=== PATIENT | female | born 1945 | race Caucasian/White ===

== ENCOUNTER 2016-05-02 11:07 | Observation (INO) | payer MEDICARE, MEDICAID ==
[~2016-05-02] VITALS: Ht 167.6 cm; Wt 107.0 kg
[~2016-05-02 11:07] MED LIST: ALTACE5 MG PO; ATIVAN0.5 MG PO; BACLOFEN10 MG PO; CEFTIN500 MG PO; CELEBREX 100 M100 MG PO; CELEXA10 MG PO; CHLORTHALIDONE25 MG PO; COPAXONE INJ20 MG/ML SQ; CYCLOBENZAPRINE10 MG PO; ELAVIL75 MG PO; HYDROCODONE-APA1 TAB PO; LIPITOR10 MG PO; NEURONTIN 300300 MG PO; NICODERM C1 PATCH .3 TRANSDERM; OXYBUTYNIN CHLOR5 MG PO; PREDNISONE10 MG PO; PROTONIX40 MG PO; VITAMIN B-121000 MCG PO; VITAMIN D2000 UNIT PO; ZANAFLEX4 MG PO; ZANTAC150 MG PO; ZYLOPRIM100 MG PO
[2016-05-02 11:59] LABS: BASOPHILS 0.1 % (0.0-2.0); EOSINOPHILS 4.9 % (0-7); HEMATOCRIT 27.8 % (36.0-48.0); HEMOGLOBIN 8.8 g/dL (12-16); IMMATURE GRANULOCYTES 0.9 % (0-5); LYMPHOCYTES 17.3 % (15-50); MCH 29.1 pg (26.0-34.0); MCHC 31.7 g/dL (31.0-37.0); MCV 92.1 fL (80.0-100.0); MEAN PLATELET VOLUME 9.8 fL (7.4-10.4); MONOCYTES 6.6 % (2-11); NEUTROPHILS 70.2 % (40-80); PLATELET COUNT 229 10x3/uL (130-400); RBC 3.02 10x6/uL (4.00-5.40); RDW 14.4 % (11.5-14.5); WBC 7.6 10x3/uL (4.8-10.8)
[2016-05-02 12:12] LABS: ALBUMIN 2.9 g/dL (3.4-5.0); ALKALINE PHOSPHATASE 103 U/L (46-116); ALT (SGPT) 9 U/L (10-68); BILIRUBIN - TOTAL 0.22 mg/dL (0.2-1.3); CALC OSMOLALITY 280 mosm/kg (275-300); CALCIUM 8.5 mg/dL (8.5-10.1); CARBON DIOXIDE 29.1 mmol/L (21.0-32.0); CHLORIDE - SERUM 104 mmol/L (98-107); CREATININE - SERUM 1.3 mg/dL (0.6-1.3); GLUCOSE 109 mg/dL (74-106); POTASSIUM - SERUM 4.4 mmol/L (3.5-5.1); PROTEIN - SERUM 6.6 g/dL (6.4-8.2); SODIUM 140 mmol/L (136-145); UREA NITROGEN 16 mg/dL (7-18); eGFR NON AFRICAN AMERICAN 43 mL/min (90-120)
[2016-05-02 12:23] LABS: CHOL - HDL RATIO 5.6 ratio (2.3-4.1); CHOLESTEROL, TOTAL 158 mg/dL (0-200); CKMB 0.5 U/L (0.0-3.6); CREATINE KINASE 35 UL (21-215); HDL CHOLESTEROL 28 mg/dL (32-96); LDL CHOLESTEROL 96 mg/dL (0-100); LDL-HDL RATIO 3.4 ratio (1.5-3.5); TRIGLYCERIDE 170 mg/dL (30-200); TROPONIN-I 0.018 ng/mL (0.000-0.060)
--- NOTE | 2016-05-02 17:40 | NUR ---
TRANSFER FROM ER BY W/C. AUGUSTOINTED TO ROOM. CALL LIGHT IN REACH. WILL CONT. PLAN OF CARE.
[2016-05-02 17:50] VITALS: BP 144/79; BMI 35.2
[2016-05-02] MEDS ORDERED: LOSARTAN POTASS25 MG PO (18:13)
[2016-05-02] MEDS ORDERED: GABAPENTIN100 MG PO (18:17)
--- NOTE | 2016-05-02 19:00 | NUR ---
RECEIVED REPORT AND ASSUMED PT CARE FROM DAY SHIFT NURSE @ THIS TIME.
[2016-05-02 19:39] LABS: CKMB 0.8 U/L (0.0-3.6); CREATINE KINASE 42 UL (21-215)
[2016-05-02 19:44] LABS: TROPONIN-I 0.017 ng/mL (0.000-0.060)
[2016-05-02 21:18] VITALS: BP 159/70
[2016-05-03 00:23] VITALS: BP 157/63
[2016-05-03 04:25] VITALS: BP 125/65
[2016-05-03 06:17] LABS: CKMB 0.6 U/L (0.0-3.6); CREATINE KINASE 29 UL (21-215); TROPONIN-I 0.017 ng/mL (0.000-0.060)
[2016-05-03 07:00] VITALS: BP 164/81
--- NOTE | 2016-05-03 07:39 | NUR ---
RECEIVED PT IN BED AAOX4 RESP UNLABORED NAD NOTED DENIES ANY NEEDS OR DISCOMFORT NAD NOTED
--- NOTE | 2016-05-03 08:40 | NUR ---
CALLED EMMA DAVIS TRANSFERED TO PT ROOM PT WANTED TO EXPLAIN WHAT DOCTOR SAID
[2016-05-03] MEDS ORDERED: COPAXONE INJ20 MG/ML SQ ×2 (10:27→10:40)
[2016-05-03] MEDS ORDERED: LIPITOR20 MG PO (10:28)
[2016-05-03] MEDS ORDERED: TENORMIN25 MG PO (10:30)
[2016-05-03] MEDS ORDERED: ATIVAN0.5 MG PO (10:31)
[2016-05-03] MEDS ORDERED: OXYBUTYNIN CHLOR5 MG PO (10:33)
[2016-05-03] MEDS ORDERED: ZYLOPRIM100 MG PO (10:34)
[2016-05-03] MEDS ORDERED: POTASSIUM99 M1 PO (10:35)
[2016-05-03] MEDS ORDERED: VITAMIN B-121000 MCG PO (10:36)
[2016-05-03] MEDS ORDERED: VITAMIN D31000 UNIT PO (10:37)
[2016-05-03] MEDS ORDERED: VITAMIN D31000 UNIT (10:37)
[2016-05-03 11:52] LABS: BASOPHILS 0.1 % (0.0-2.0); EOSINOPHILS 4.1 % (0-7); HEMATOCRIT 25.8 % (36.0-48.0); HEMOGLOBIN 8.4 g/dL (12-16); IMMATURE GRANULOCYTES 0.4 % (0-5); LYMPHOCYTES 16.7 % (15-50); MCH 29.8 pg (26.0-34.0); MCHC 32.6 g/dL (31.0-37.0); MCV 91.5 fL (80.0-100.0); MEAN PLATELET VOLUME 9.9 fL (7.4-10.4); MONOCYTES 5.2 % (2-11); NEUTROPHILS 73.5 % (40-80); PLATELET COUNT 233 10x3/uL (130-400); RBC 2.82 10x6/uL (4.00-5.40); RDW 14.4 % (11.5-14.5); WBC 7.4 10x3/uL (4.8-10.8)
[2016-05-03 12:00] VITALS: BP 132/66
[2016-05-03 12:18] LABS: AMYLASE - SERUM 11 U/L (25-115); LIPASE 46 U/L (73-393)
[2016-05-03 13:21] VITALS: Ht 167.6 cm; Wt 107.0 kg
[2016-05-03 16:00] VITALS: BP 167/68
--- NOTE | 2016-05-03 19:15 | NUR ---
INIITIAL ROUNDS MADE. PT SITTING UP IN BED RESTING WELL WITH EYES CLOSED. AWAKENED EASILY WHEN NAME CALLED. CALL LIGHT IN REACH. WILL CONT TO MONITOR.
[2016-05-03 20:47] VITALS: BP 121/51
--- NOTE | 2016-05-03 22:50 | NUR ---
DR BRUNSON HAS ORDERED GOLYTELY FOR PT CONSTIPATION. NOTIFIED PLAYERS ASSISTANT.
--- NOTE | 2016-05-03 23:25 | NUR ---
SR. SOCIAL MEDIA & MOBILE MANAGER AT BEDSIDE FOR VS. NEEDS ADDRESSED, CALL LIGHT IN REACH. WILL CONT TO MONITOR.
[2016-05-04 00:24] VITALS: BP 153/75
[2016-05-04 04:39] VITALS: BP 139/59
--- NOTE | 2016-05-04 05:15 | NUR ---
NO CHANGES IN ASSESSMENT. CALL LIGHT IN REACH. DENIES NEEDS. CONT TO MONITOR.
--- NOTE | 2016-05-04 05:30 | NUR ---
AUDIO DIRECTOR BROUGHT MARTA TO FLOOR. MIXED AND STARTED AT THIS TIME. PT INSTRUCTED ON USE.
--- NOTE | 2016-05-04 07:30 | NUR ---
RECEIVED PT IN BED AAOX4 C/O HENDRICKS 11/18 REQUESTING TYLENOL EXPLAINED I WOULD CALL AND GET AN ORDER FOR TYLENOL DENIES ANY OTHER NEEDS
[2016-05-04] MEDS ORDERED: ACETAMINOPHEN500 M1 PO (07:32)
--- NOTE | 2016-05-04 11:34 | NUR ---
CM MET WITH PATIENT REGARDING D/C TODAY. PATIENT WAS DRESSED AND READY FOR DISCHARGE. PATIENT REFUSED HOME HEALTH OR ANY OTHER NEEDS. PATIENT WAS WAITING ON HER RIDE HOME.
[2016-05-04 13:01] VITALS: BP 109/49
--- NOTE | 2016-05-04 13:30 | NUR ---
REVIEWED DISCHARGE [id number] WITH PT AND SON BOTH STATE UNDERSTANDING COPY GIVEN TO PT DCD LT HAND SALINE LOCK WITH 20 GA IV CATHETER INTACT PT DISCHARGED HOME LEFT UNIT IN STABLE CONDITION VIA W/C WITH ALL PERSONAL BELONGINGS
== END 2016-05-04 13:30 | disposition home or self-care (01) ==
LOC: D.ER 11:07 → D.M2 14:21 → OBSVTIME 14:21 → D.M2 05-04 13:30
PROVIDERS: Emergency Medicine; ADMIT Internal Medicine Cardiovascular Disease
DX: I25.110 Atherosclerotic heart disease of native coronary artery with unstable angina pectoris (principal); R07.89 Other chest pain; I10 Essential (primary) hypertension; E78.5 Hyperlipidemia, unspecified; J44.9 Chronic obstructive pulmonary disease, unspecified; K59.00 Constipation, unspecified

== ENCOUNTER 2016-06-04 20:45 | Inpatient (IN) | payer MEDICARE ==
[~2016-06-04] VITALS: Ht 167.6 cm; Wt 99.8 kg
[~2016-06-04 20:45] MED LIST changes: +ACETAMINOPHEN500 M1 PO; +GABAPENTIN100 MG PO; +LIPITOR20 MG PO; +LOSARTAN POTASS25 MG PO; +POTASSIUM99 M1 PO; +TENORMIN25 MG PO; +VITAMIN D31000 UNIT; +VITAMIN D31000 UNIT PO
[2016-06-04 21:24] LABS: BASOPHILS 0.1 % (0-2); EOSINOPHILS 0.1 % (0-7); HEMATOCRIT 30.3 % (36.0-48.0); HEMOGLOBIN 9.9 g/dL (12-16); LYMPHOCYTES 15.4 % (15-50); MCH 29.1 pg (26.0-34.0); MCHC 32.7 g/dL (31.0-37.0); MCV 89.1 fL (80.0-100.0); MEAN PLATELET VOLUME 10.4 fL (7.4-10.4); MONOCYTES 8.2 % (2-11); NEUTROPHILS 73.2 % (40-80); PLATELET COUNT 252 10x3/uL (130-400); RDW 14.5 % (11.5-14.5); WBC 10.5 10x3/uL (4.8-10.8)
[2016-06-04 21:43] LABS: ALBUMIN 2.9 g/dL (3.4-5.0); ANION GAP 11.3 mmol/L (8-16); BILIRUBIN - TOTAL 0.37 mg/dL (0.2-1.3); CARBON DIOXIDE 26.7 mmol/L (21.0-32.0); CREATININE - SERUM 1.6 mg/dL (0.6-1.3); PROTEIN - SERUM 6.1 g/dL (6.4-8.2)
[2016-06-04 23:25] LABS: APPEARANCE HAZY (CLEAR); BILIRUBIN NEGATIVE (NEGATIVE); COLOR YELLOW (YELLOW); GLUCOSE 100 mg/dL (NEGATIVE); KETONE NEGATIVE (NEGATIVE); LEUKOCYTE ESTERASE 1+ (NEGATIVE); NITRITE NEGATIVE (NEGATIVE); PH 5.5 (5.0-6.0); PROTEIN 1+ mg/dL (NEGATIVE); SPECIFIC GRAVITY 1.015 (1.005-1.020); UROBILINOGEN NORMAL (NORMAL)
[2016-06-04 23:32] LABS: BACTERIA MODERATE /hpf (NONE SEEN); EPITHELIAL CELLS 0-5 /hpf (0-5); RED CELLS - URINE 0-5 /hpf (0-5)
[2016-06-05 02:00] VITALS: BP 149/68; BMI 35.6
--- NOTE | 2016-06-05 02:17 | NUR ---
RECEIVED PATIENT FROM ER WITH FAMILY AT BEDSIDE. NO VISIBLE SIGNS OF DISTRESS. PATIENT IS ABLE TO ANSWER QUESTIONS. HUNG LEVOFLOXACIN 500MG IN 100ML THAT WAS BROUGHT FROM THE ER. BED IN LOWEST POSITION, CALL LIGHT WITHIN REACH, AND BED ALARM ON. ENCOURAGED THE PATIENT AND FAMILY TO CALL IF THEY HAVE FURTHER NEEDS.
--- NOTE | 2016-06-05 04:17 | NUR ---
IV TO R WRIST INFILTRATED, DC'D WITH CATH INTACT, RESITED WITH 22 G IN R FOREARM X 2 ATTEMPTS, IV FLUIDS RESTARTED, ALEENA WELL, SR'S UP, CL IN REACH
--- NOTE | 2016-06-05 07:30 | NUR ---
UPON ENTERING PATIENT'S ROOM, RESTING QUIETLY WITH EYES CLOSED. PATIENT AROUSED EASILY. ASKED PATIENT QUESTIONS TO ASSESS LEVEL OF ORIENTATION. PATIENT STATED NAME AND CORRECTLY. SHE ANSWERED CORRECTLY REGARDING PLACE AND SITUATION. ASKED PATIENT THE YEAR, PATIENT STATED "OH..I JUST WOKE UP. LET ME THINK ABOUT IT...." ASKED PATIENT WHO IS THE PRESIDENT. PATIENT SAID "OH..I KNOW... ITS WHAT'S HIS NAME?" REORIENTED PATIENT TO TIME AND DATE. ASSESSMENT COMPLETED AT THIS TIME.
[2016-06-05 08:21] VITALS: BP 173/70
--- NOTE | 2016-06-05 10:30 | NUR ---
TIERA VANN STATED "THE PATIENT SAID SHE HAS BEEN WET SINCE 8PM LAST NIGHT." SOO CHANGED THE LINENS AND CLEANED PATIENT UP. I WENT IN ROOM. I STATED "HAWA GONZALEZY TOLD ME THAT YOU SAID YOU HAVE BEEN WET SINCE 8PM LAST NIGHT. I JUST WANTED TO LET YOU KNOW THAT IS NOT ACCURATE. YOU DID NOT GET UP HERE TO YOUR ROOM UNTIL AROUND 2AM THIS MORNING. AND REMEMBER YOUR NURSE AND ELECTRICAL SYSTEMS DESIGN ENGINEER LAST NIGHT GAVE YOU A BATH AND PUT LOTION ON YOU?" PATIENT STATED "OH YEAH. THAT WAS AROUND 4AM." I SAID "AND REMEMBER I CAME IN THIS MORNING AND DID YOUR ASSESSMENT AND GAVE YOU INSULIN AND WE TALKED ABOUT WHO THE PRESIDENT IS. AND YOU WERE NOT WET THEN." PATIENT STATED "YEAH. I WAS CONFUSED. I REMEMBER NOW."
--- NOTE | 2016-06-05 11:16 | NUR ---
ASSISTED PATIENT TO THE CHAIR. VIGNESH CHAIR ALARM ON.
[2016-06-05 11:35] VITALS: BP 180/72
[2016-06-05 14:02] VITALS: Ht 167.6 cm; Wt 99.8 kg
--- NOTE | 2016-06-05 14:11 | NUR ---
Patient Name: KENDRA GEE Admission Status: ER Accout number: [id number] Admission Date: 06-05-2016 : 1945 Admission Diagnosis: Attending: RIOS Current LOS: 1 Anticipated DC Date: 06-09-2016 Planned Disposition: Home Primary Insurance: MEDICARE A & B Discharge Planning Comments: CM MET WITH PATIENT REGARDING D/C NEEDS AND PLANS. PATIENT STATED SHE LIVES WITH HER SON (SUSAN TREVIÑO) AND HE WILL DRIVE HER HOME AT DISCHARGE. PATIENT IS INDEPENDENT WITH HER CARE AND HAS A WALKER, WHEELCHAIR, SHOWER CHAIR, AND BS COMMODE AT HOME. PATIENTS SON HELPS HER WITH HER MEDICATION. PATIENT HAS NO STEPS OR STAIRS AT HER HOME. PATIENTS PCP IS DR. HARRIS AND PHARMACY IS [facility] [address]. CM WILL CONTINUE TO FOLLOW PATIENT WITH D/C NEEDS AND PLANS. PATIENT HAD BEEN WITH [facility] RECENTLY BUT DOES NOT THINK SHE WILL NEED THEM AT DISCHARGE. CM WILL CONTINUE TO FOLLOW PATIENT WITH D/C NEEDS AND PLANS. PCP DR. STEVEN ROACH ON [facility]- [phone] SUSAN TREVIÑO (SON) [phone] Water Supply Technician: Naheed Rodriguez Is the patient Alert and Oriented? Yes 0 * How many steps to enter\exit or inside your home? 0 0 * PCP DR. HARRIS 0 * Pharmacy [facility] [address] [employer] 0 * Preadmission Environment Home with Family 0 * ADLs Independent 0 * Equipment Bedside Commode Shower Chair Walker Wheelchair 0 * List name and contact numbers for known caregivers / representatives who currently or will assist patient after discharge: SUSAN TREVIÑO (SON) [phone] * Community resources currently utilized None 0 * Additional services required to return to the preadmission environment? Yes 0 * Can the patient safely return to the preadmission environment? Yes 0 * Has this patient been hospitalized within the prior 30 days at any hospital? No 0 Grand Total: 0
--- NOTE | 2016-06-05 15:41 | NUR ---
CALLED [employer] FOR SCD MACHINE
--- NOTE | 2016-06-05 15:42 | NUR ---
PATIENT RESTING QUIETLY WITH EYES CLOSED. NO SIGNS OF DISTRESS NOTED.
--- NOTE | 2016-06-05 16:43 | NUR ---
APPLIED SCDS TO BILATERAL LEGS
--- NOTE | 2016-06-05 17:00 | NUR ---
PATIENT'S SON AT THE BEDSIDE. GAVE ME 5 SYRINGES OF 20MG/ML COPAXONE. GAVE THEM TO BOBO PHARMACIST.
[2016-06-05] MEDS ORDERED: COPAXONE INJ20 MG/ML SQ (17:12)
[2016-06-05 17:49] LABS: % SATURATION 14 % (15-55); IRON 38 ug/dl (35-150); TOTAL IRON BIND CAPACITY 258 ug/dl (260-445); UNSAT IRON BIND CAPACITY 220 ug/dl (150-375)
[2016-06-05 20:00] VITALS: BP 133/46
--- NOTE | 2016-06-05 23:48 | NUR ---
1930)REC'D. IN BED EYES CLOSED RESP. DEEP AND EVEN.WILL CONTINUE TO MONITOR FOR ANY CHGES. AND FOLLOW CURRENT PLAN OF CARE.
[2016-06-06] VITALS: BP 178/81
--- NOTE | 2016-06-06 02:50 | NUR ---
PT IS ASLEEP WITH EASY RESPIRATIONS ON ROOM AIR. THE LIGHTS ARE OFF AND THE BED IS LOW, RAILS UP X'S 2 WITH THE CALL LIGHT AT HAND.
[2016-06-06 04:00] VITALS: BP 175/76
[2016-06-06 06:49] LABS: BASOPHILS 0.1 % (0-2); EOSINOPHILS 3.9 % (0-7); HEMATOCRIT 29.9 % (36.0-48.0); HEMOGLOBIN 9.7 g/dL (12-16); IMMATURE GRANULOCYTES 3.4 % (0-5); LYMPHOCYTES 25.9 % (15-50); MCH 29.5 pg (26.0-34.0); MCHC 32.4 g/dL (31.0-37.0); MCV 90.9 fL (80.0-100.0); MEAN PLATELET VOLUME 9.9 fL (7.4-10.4); NEUTROPHILS 55.7 % (40-80); RBC 3.29 10x6/uL (4.00-5.40); RDW 14.8 % (11.5-14.5); WBC 8.2 10x3/uL (4.8-10.8)
[2016-06-06 06:53] LABS: PLATELET COUNT 192 10x3/uL (130-400)
[2016-06-06 07:25] LABS: ANION GAP 6.1 mmol/L (8-16); CALCIUM 8.9 mg/dL (8.5-10.1); CARBON DIOXIDE 29.2 mmol/L (21.0-32.0); CREATININE - SERUM 1.2 mg/dL (0.6-1.3); POTASSIUM - SERUM 4.3 mmol/L (3.5-5.1)
--- NOTE | 2016-06-06 07:35 | NUR ---
Verbalized name and , Cuddy left arm. Iv patent to right forearm. Incontinent of urine cleansed up, no skin breakdown assessed. Repositioned in bed. No distress assessed.
--- NOTE | 2016-06-06 08:21 | HP ---
PATIENT: KENDRA GEE MEDICAL RECORD: [id number] ACCOUNT: [id number] LOCATION:[facility] : 43 ADMISSION DATE: 06/05/16 HISTORY AND PHYSICAL EXAMINATION Admission History and Physical DATE OF ADMISSION: ____ CHIEF COMPLAINT: Generalized weakness. HISTORY OF PRESENT ILLNESS: A 70-year-old female who just started seeing a few months ago, presented to the ER yesterday evening with generalized weakness with gradual onset over the last couple of days, she has difficulty standing and walking. She had a little bit of weakness to the left side more than the right. She has a history of hypertension and reportedly had a stroke in October 2015. She denied fever, chills. No significant nausea or vomiting. In the Emergency Room, she was a little confused. CT of the head did not show any abnormalities. Lab work basically showed elevated sugar. Urine was hazy with 1+ leukocyte esterase, 0-5 epithelial cells and moderate amount of bacteria. White count was normal and she was a little anemic with a hemoglobin of 9.9, BUN and creatinine were 43 and 1.6. She is admitted for altered mental status with generalized weakness, UTI and anemia. PAST MEDICAL HISTORY: She has multiple sclerosis, followed by Dr. Ulloa She has a history of anxiety and depression, high cholesterol, high blood pressure, overactive bladder and reportedly a stroke in 2015, though CT of the head does not show any abnormalities even any old abnormalities. PAST SURGICAL HISTORY: Cholecystectomy, splenectomy, and knee replacement. ALLERGIES: CODEINE. HOME MEDICATIONS: Include Copaxone one injection daily, amitriptyline 75 mg daily, Tylenol as needed, vitamin D 1000 units once a day, B12 of 1000 mcg tablet once a day, lorazepam half a tablet up to 3 times a day as needed for anxiety, gabapentin 100 mg 3 at bedtime, losartan 25 mg once a day, potassium 99 mg once a day, ranitidine 150 mg twice a day, oxybutynin 5 mg 3 times a day, citalopram 10 mg once a day, Celebrex 100 mg twice a day, atenolol 25 mg one half tablet once a day, allopurinol 100 mg once a day, atorvastatin 20 mg at bedtime. HABITS: My records show she is a current every day smoker. Denies any alcohol or drug use. SOCIAL HISTORY: She is and lives with son. FAMILY HISTORY: Father at 74, he had dementia, heart disease, hypertension, and had a stroke. Mother and she had had arthritis and breast cancer. REVIEW OF SYSTEMS: GENERAL: No major weight changes. HEENT: No particular sinus or allergy problems. RESPIRATORY: No history of emphysema or asthma. HISTORY AND PHYSICAL [id number] KENDRA GEE CARDIAC: She was just admitted here at [facility] last month with chest pain to the cardiology group. She had a CT of the chest that was negative for PE. There were some coronary calcifications on the CT, cardiac enzymes were negative and I do not believe any further workup was done, but there is no known coronary artery disease in her. GASTROINTESTINAL: She has had some reflux. GENITOURINARY: She has overactive bladder. MUSCULOSKELETAL: Few joint aches and pains. NEUROLOGIC: She has multiple sclerosis. No seizures. No migraines. She reportedly has this history of stroke back in July 2015, but there are no obvious deficits on her exam. PHYSICAL EXAMINATION: VITAL SIGNS: Temperature 97.5, pulse 60, respirations 18, blood pressure 180/72, and O2 sat 96%. GENERAL: She does not appear in acute distress at this time. HEENT: Grossly within normal limits. NECK: Supple. No JVD or bruit. HEART: Regular rate and rhythm without murmur. LUNGS: Clear. ABDOMEN: Soft, but generalized tenderness especially in the lower abdomen. No guarding, no rebound, no mass. EXTREMITIES: No edema. BACK: With no significant pain there. NEUROLOGIC: At this point, cranial nerves II-XII are grossly intact. No focal motor or sensory deficits noted. DIAGNOSTIC DATA: CT of her head was done last night in the ER showing no mass effect or midline shift, no high or low density lesions seen. No lytic or blastic lesions. Sinuses look clear. There was no acute intracranial pathology and there was no mention of any old areas of infarct. LABORATORY WORKUP: CBC with a white count of 10,500, hemoglobin 9.9, hematocrit 30.3 with a normal MCV and platelet count. Chemistry: BUN a little low at 2.9, protein 6.1; however, liver functions are okay. Her glucose initially in the ER was 280. BUN and creatinine were 43 and 1.6. Electrolytes were normal. Urinalysis is yellow, hazy, 1+ protein, 1+ leukocyte esterase, 10-25 white blood cells, moderate amount of bacteria, 0-5 epithelial cells. Urine culture has been done. ASSESSMENT: 1. Urinary tract infection. 2. Encephalopathy, most likely due to urinary tract infection. 3. Anemia, uncertain etiology. 4. Weakness. PLAN: IV fluids. The urine culture has already been done. SCDs are ordered. She started on Levaquin and we will continue her usual home medications. We will do further workup for her anemia. Other tests and procedures as warranted. TRANSINT:[id number] Voice Confirmation ID: [id number] DOCUMENT ID: [id number] HISTORY AND PHYSICAL [id number] KENDRA GEE WILLIAM MD at 0821 CC: [id number] DICTATION DATE: 06/05/16 1612 GENERAL SERVICE TECHNICIAN: 06/05/16 2251 ADM IN [facility] [address] [id number]
[2016-06-06 10:09] VITALS: BP 143/58
[2016-06-06 11:47] VITALS: BP 115/38
[2016-06-06 16:38] VITALS: BP 115/48
[2016-06-06 19:00] VITALS: BP 146/57
--- NOTE | 2016-06-06 19:30 | NUR ---
PT RECEIVED SITTING UP IN BED WATCHING TELEVISION. ASSESSMENT COMPLETED PER FLOW SHEET. PT DENIES NEEDS AT THIS TIME. CALL LIGHT AND H2O IN PT REACH. BED IN LOW POSITION. SIDE REAILS UP X2.
--- NOTE | 2016-06-06 20:00 | NUR ---
PT REQUESTS SCD'S TO BE REMOVED. EDUCATE PT ON SCD'S FOR DVT PREVENTION. PT VERBALIZED UNDERSTANDING AND STATES, "I CAN'T SLEEP WITH THEM ON, THEY ARE UNCOMFORTABLE." SCD'S REMOVED PER PT'S REQUEST.
[2016-06-07] VITALS: BP 168/57
--- NOTE | 2016-06-07 03:47 | NUR ---
LYING IN BED WITH EYES CLOSED. RESP EVEN AND UNLABORED. CALL LIGHT IN REACH.
[2016-06-07 04:00] VITALS: BP 169/69
--- NOTE | 2016-06-07 07:30 | NUR ---
LYING IN BED WATCHING TV, DENIES NEEDS, HOPFUL FOR DISCHARGE, CALL LIGHT IN REACH, BED LOWEST POSITION, GETTTING UP FOR SHOWER, WILL CONTINUE TO MONITOR
[2016-06-07 08:16] LABS: FOLATE (FOLIC ACID) - SERUM 3.4 ng/mL (>3.0)
[2016-06-07 09:00] VITALS: BP 143/90
--- NOTE | 2016-06-07 11:26 | NUR ---
CM faxed discharge information to [facility] and also spoke to [facility] service to notify nurse of patient's dishcarge today. Dorita Gomes RN, [facility] [phone]
--- NOTE | 2016-06-07 13:30 | NUR ---
SITTING UP IN CHAIR AT BEDSIDE ALERT. NO SIGNS OF DISTRESS NOTED. CALL LIGHT IN REACH.
--- NOTE | 2016-06-07 14:04 | NUR ---
DISCHARGE PAPERS AND INSTRUCTIONS GIVEN TO PT AND SON, QUESTIONS ANSWERED, IV REMOVED TIP INTACT, DISCHARGED PER WC WITH BELONGINGS
== END 2016-06-07 14:24 | disposition home health service (06) | DRG 689 ==
LOC: D.ER 20:45 → D.MS 06-05 00:29
PROVIDERS: Emergency Medicine; ADMIT Family Medicine
DX: N39.0 Urinary tract infection, site not specified (principal); G93.40 Encephalopathy, unspecified; R53.1 Weakness; E78.00 Pure hypercholesterolemia, unspecified; F41.8 Other specified anxiety disorders; G35 Multiple sclerosis; E86.0 Dehydration; I12.9 Hypertensive chronic kidney disease with stage 1 through stage 4 chronic kidney disease, or unspecified chronic kidney disease; N18.9 Chronic kidney disease, unspecified; D63.1 Anemia in chronic kidney disease; J44.9 Chronic obstructive pulmonary disease, unspecified; R32 Unspecified urinary incontinence; Z86.73 Personal history of transient ischemic attack (TIA), and cerebral infarction without residual deficits

== ENCOUNTER 2016-07-08 15:28 | Emergency (ER) | payer MEDICARE ==
[2016-06-05 14:02] VITALS: BMI 35.5
[2016-07-08 17:02] LABS: BASOPHILS 0.3 % (0-2); HEMATOCRIT 30.9 % (36.0-48.0); HEMOGLOBIN 9.8 g/dL (12-16); IMMATURE GRANULOCYTES 1.6 % (0-5); LYMPHOCYTES 20.1 % (15-50); MCH 29.5 pg (26.0-34.0); MCHC 31.7 g/dL (31.0-37.0); MCV 93.1 fL (80.0-100.0); MEAN PLATELET VOLUME 10.6 fL (7.4-10.4); MONOCYTES 9.2 % (2-11); NEUTROPHILS 65.8 % (40-80); PLATELET COUNT 226 10x3/uL (130-400); RBC 3.32 10x6/uL (4.00-5.40); RDW 15.5 % (11.5-14.5); WBC 6.7 10x3/uL (4.8-10.8)
[2016-07-08 17:43] LABS: INR 0.99 (0.85-1.17)
[2016-07-08 17:44] LABS: APTT 45.7 SECONDS (22.8-39.4)
[2016-07-08 17:51] LABS: ALBUMIN 3.3 g/dL (3.4-5.0); ANION GAP 12.2 mmol/L (8-16); BILIRUBIN - TOTAL 0.33 mg/dL (0.2-1.3); CALCIUM 9.2 mg/dL (8.5-10.1); CARBON DIOXIDE 28.4 mmol/L (21.0-32.0); CREATININE - SERUM 1.4 mg/dL (0.6-1.3); POTASSIUM - SERUM 4.6 mmol/L (3.5-5.1); PROTEIN - SERUM 6.8 g/dL (6.4-8.2)
[2016-07-08 18:31] LABS: APPEARANCE CLEAR (CLEAR); BILIRUBIN NEGATIVE (NEGATIVE); COLOR YELLOW (YELLOW); GLUCOSE NEGATIVE (NEGATIVE); KETONE NEGATIVE (NEGATIVE); LEUKOCYTE ESTERASE NEGATIVE (NEGATIVE); NITRITE NEGATIVE (NEGATIVE); PROTEIN NEGATIVE (NEGATIVE); UROBILINOGEN NORMAL (NORMAL)
== END 2016-07-08 19:39 | disposition home or self-care (01) ==
LOC: D.ER 15:28
PROVIDERS: Emergency Medicine
DX: J20.9 Acute bronchitis, unspecified (principal); J44.9 Chronic obstructive pulmonary disease, unspecified; I12.9 Hypertensive chronic kidney disease with stage 1 through stage 4 chronic kidney disease, or unspecified chronic kidney disease; N18.9 Chronic kidney disease, unspecified

== ENCOUNTER 2016-09-29 06:11 | Inpatient (IN) | payer MEDICARE ==
[~2016-09-29] VITALS: Ht 167.6 cm; Wt 104.5 kg
[2016-09-29] VITALS (11 sets, daily range): BP systolic 99–127; BP diastolic 49–82; BMI 36.4
[2016-09-29 07:10] LABS: BASOPHILS 0.2 % (0-2); EOSINOPHILS 6.6 % (0-7); HEMATOCRIT 27.7 % (36.0-48.0); HEMOGLOBIN 8.8 g/dL (12-16); IMMATURE GRANULOCYTES 0.3 % (0-5); LYMPHOCYTES 18.6 % (15-50); MCH 28.9 pg (26.0-34.0); MCHC 31.8 g/dL (31.0-37.0); MCV 91.1 fL (80.0-100.0); NEUTROPHILS 67.3 % (40-80); PLATELET COUNT 226 10x3/uL (130-400); RBC 3.04 10x6/uL (4.00-5.40); RDW 15.1 % (11.5-14.5); WBC 6.2 10x3/uL (4.8-10.8)
[2016-09-29] MEDS ORDERED: CELEBREX 100 M100 MG PO (07:10)
[2016-09-29] MEDS ORDERED: GLUCOPHAGE500 MG PO (07:10)
[2016-09-29] MEDS ORDERED: ELAVIL25 MG PO (07:11)
[2016-09-29 07:25] LABS: ANION GAP 10.7 mmol/L (8-16); CALCIUM 8.5 mg/dL (8.5-10.1); CARBON DIOXIDE 28.4 mmol/L (21.0-32.0); CREATININE - SERUM 1.6 mg/dL (0.6-1.3); POTASSIUM - SERUM 4.1 mmol/L (3.5-5.1)
[2016-09-29 07:26] LABS: INR 1.08 (0.85-1.17); PROTIME 13.9 SECONDS (11.6-15.0)
[2016-09-29 07:27] LABS: APTT 51.2 SECONDS (22.8-39.4)
[2016-09-29 09:41] LABS: CKMB 0.3 U/L (0.0-3.6); CREATINE KINASE 37 UL (21-215); TROPONIN-I < 0.017 ng/mL (0.000-0.060)
[2016-09-29 09:45] LABS: BASOPHILS 0.1 % (0-2); EOSINOPHILS 4.6 % (0-7); HEMATOCRIT 31.1 % (36.0-48.0); HEMOGLOBIN 9.7 g/dL (12-16); IMMATURE GRANULOCYTES 1.2 % (0-5); LYMPHOCYTES 29.1 % (15-50); MCH 28.9 pg (26.0-34.0); MCHC 31.2 g/dL (31.0-37.0); MCV 92.6 fL (80.0-100.0); MEAN PLATELET VOLUME 10.6 fL (7.4-10.4); MONOCYTES 5.8 % (2-11); NEUTROPHILS 59.2 % (40-80); RBC 3.36 10x6/uL (4.00-5.40); RDW 15.3 % (11.5-14.5)
[2016-09-29 09:49] LABS: PLATELET COUNT 280 10x3/uL (130-400); WBC 10.3 10x3/uL (4.8-10.8)
[2016-09-29 09:56] LABS: APTT 47.6 SECONDS (22.8-39.4); INR 1.12 (0.85-1.17); PROTIME 14.3 SECONDS (11.6-15.0)
[2016-09-29 14:01] LABS: CREATINE KINASE 48 UL (21-215)
[2016-09-29 14:07] LABS: TROPONIN-I 0.187 ng/mL (0.000-0.060)
--- NOTE | 2016-09-29 14:10 | NUR ---
PT ARRIVED ON UNIT FROM ER VIA STRETCHER. PT IN CONTROLLED AFIB AT THIS TIME. CARDIOLOGY AND PULMONOLOGY CONSULTED AND NOTIFIED. ADMISSION ASSESSMENT, HISTORY, QUICK START COMPLETED. PT ALERT AND ABLE TO ANSWER ALL QUESTIONS APPROPRIATELY. APPEARS SLIGHTLY DISORIENTED TO SITUATION BUT ABLE TO REORIENT. PT SET UP ON MONITOR. WILL MONITOR CLOSELY.
--- NOTE | 2016-09-29 16:00 | NUR ---
PT RESTING AT THIS TIME WITH NO COMPLAINTS. REMAINS IN CONTROLLED AFIB AND VITAL SIGNS ARE STABLE. DENIES PAIN OR DISCOMFORT. WILL CONTINUE TO MONITOR
--- NOTE | 2016-09-29 17:30 | NUR ---
PT SITTING UP IN BED EATING DINNER INDEPENDENTLY. FAMILY AT BEDSIDE AND UPDATE GIVEN. PT STABLE AT THIS TIME. WILL CONTINUE TO MONITOR
--- NOTE | 2016-09-29 20:30 | NUR ---
AWAKE AND ALERT. VERY COOPERATIVE. DENIES NEEDS
[2016-09-29 20:36] LABS: CREATINE KINASE 47 UL (21-215)
[2016-09-29 20:46] LABS: TROPONIN-I 0.148 ng/mL (0.000-0.060)
--- NOTE | 2016-09-29 23:10 | NUR ---
NO CHANGES. STATES THAT HER CHEST IS SORE.
[2016-09-30] VITALS (21 sets, daily range): BP systolic 96–156; BP diastolic 57–107; Ht 167.6 cm; Wt 104.5 kg
--- NOTE | 2016-09-30 03:30 | NUR ---
AWAKENS EASILY. DENIES NEEDS. VSS.
[2016-09-30 04:12] LABS: BASOPHILS 0.3 % (0-2); EOSINOPHILS 3.8 % (0-7); HEMATOCRIT 26.9 % (36.0-48.0); HEMOGLOBIN 8.6 g/dL (12-16); IMMATURE GRANULOCYTES 0.4 % (0-5); LYMPHOCYTES 17.2 % (15-50); MCH 29.2 pg (26.0-34.0); MCV 91.2 fL (80.0-100.0); MEAN PLATELET VOLUME 10.7 fL (7.4-10.4); MONOCYTES 6.5 % (2-11); NEUTROPHILS 71.8 % (40-80); PLATELET COUNT 225 10x3/uL (130-400); RBC 2.95 10x6/uL (4.00-5.40); RDW 15.2 % (11.5-14.5)
[2016-09-30 04:24] LABS: ALBUMIN 2.4 g/dL (3.4-5.0); ANION GAP 11.3 mmol/L (8-16); BILIRUBIN - TOTAL 0.23 mg/dL (0.2-1.3); CARBON DIOXIDE 26.6 mmol/L (21.0-32.0); CREATININE - SERUM 1.4 mg/dL (0.6-1.3); POTASSIUM - SERUM 4.9 mmol/L (3.5-5.1); PROTEIN - SERUM 5.7 g/dL (6.4-8.2)
[2016-09-30 04:26] LABS: WBC 7.4 10x3/uL (4.8-10.8)
--- NOTE | 2016-09-30 06:45 | NUR ---
PIV RESITED TO R UPPER ARM.
--- NOTE | 2016-09-30 07:00 | NUR ---
PT AWAKE AND ALERT, APPEARS TO BE SLIGHTLY DISORIENTED TO PLACE AND SITUATION AT THIS TIME. PT STATES THAT SHE IS STILL UNCLEAR HOW SHE GOT TO THE ICU. EXPLAINED SITUATION AND THAT SHE IS AT [facility], PT VERBALIZED UNDERSTANDING. ABLE TO ANSWER ALL QUESTIONS AND RESPONDS APPROPRIATELY. COMPLAINS OF SLIGHT DISCOMFORT IN CHEST AT THIS TIME, SHE SAYS IT IS SORE AFTER YESTERDAY. PT IN CONTOLLED AFIB ON MONITOR AT THIS TIME. ABLE TO MOVE SELF IN BED WITH PARTIAL ASSISTANCE. HAS NO COMPLAINTS AT THIS TIME. WILL CONTINUE TO MONITOR CLOSELY. VITAL SIGNS STABLE
--- NOTE | 2016-09-30 07:56 | NUR ---
PT MOVED UP IN BED WITH MODERATE ASSISTANCE. SITTING UP EATING BREAKFAST INDEPENDENTLY WITH NO COMPLAINTS. VITAL SIGNS STABLE.
--- NOTE | 2016-09-30 09:30 | NUR ---
DR MENDEZ DISCUSSED OPTIONNS FOR NEW ONSET AFIB WITH PT AND SHE HAS AGREED TO CARDIOVERSION. WAITING FOR ORDERS PRIOR TO OBTAINING CONSENTS. WILL KEEP PT NPO UNTIL AFTER PROCEDURE. BREATHING TREATMENTS DC'D PER DR MENDEZ ORDER DUE TO IRREGULAR RHYTHM. WILL CONTINUE TO MONITOR FOR CHANGES IN STATUS.
--- NOTE | 2016-09-30 09:44 | NUR ---
* Is the patient Alert and Oriented? Yes 0 * How many steps to enter\exit or inside your home? 0 0 * PCP Dr. Marquez 0 * [facility]acy [facility] [address] 0 * Preadmission Environment Home with Family 0 * ADLs Independent 0 * Equipment Bedside Commode Cane Glucometer Nebulizer Oxygen Rolling Walker Shower Chair 0 * List name and contact numbers for known caregivers / representatives who currently or will assist patient after discharge: Alden Kaur [phone] 0 * Additional services required to return to the preadmission environment? No 0 * Can the patient safely return to the preadmission environment? Yes 0 * Has this patient been hospitalized within the prior 30 days at any hospital? No Patient Name: KENDRA GEE Admission Status: Elective Accout number: [id number] Admission Date: 09-29-2016 : 1945 Admission Diagnosis:RESPIRATORY ARREST Attending: HUONG Current LOS: 1 Planned Disposition: Home with Home Health Primary Insurance: MEDICARE A & B Discharge Planning Comments: CM met with patient to assess dc plans/needs. Patient states she lives with her son, William. She reports she is independent with all ADL's, but does use a walker or cane at times. She is currently on service with [employer] & wants to resume their services at discharge. CM will follow and assist as needed. Toy Stuffer: Keena Ng
--- NOTE | 2016-09-30 11:00 | NUR ---
SPOKE WITH DR ATKINS AND 2 UNITS OF PRBC TO BE TRANSFUSED TODAY. WILL OBTAIN TYPE AND SCREEN PER ORDER PRIOR TO TRANSFUSION. VITAL SIGNS STABLE. DR WIGGINS STATES THAT WE WILL SCHEDULE CARDIOVERSION FOR 10/01/16 AND START ON AMIODARONE DRIP PER PROTOCOL TODAY
--- NOTE | 2016-09-30 13:00 | NUR ---
TYPE AND SCREEN BEING DRAWN FOR PRBCS. PT SITTING UP IN BED WITH NO COMPLAINTS AT THIS TIME. VITAL SIGNS STABLE
--- NOTE | 2016-09-30 15:00 | NUR ---
FIRST UNIT OF PRBC INITIATED. MONITORING CLOSELY FOR TRANSFUSION REACTION. BLOOD CHECKED WITH LAB AND WITH SECOND RN PRIOR TO ADMINISTRATION. VITAL SIGNS DOCUMENTED ON BLOOD FLOWSHEET PER PROTOCOL. VITAL SIGNS STABLE
--- NOTE | 2016-09-30 15:47 | EC ---
PATIENT:KENDRA GEE DATE OF SERVICE: 09/29/16 SEX: F MEDICAL RECORD: [id number] DATE OF : [birth year] LOCATION[facility] AGE OF PATIENT: 71 ADMISSION DATE: 09/29/16 REFERRING PHYSICIAN: INTERPRETING PHYSICIAN: MARCOS WIGGINS MD ECHOCARDIOGRAM REPORT ECHO CHARGES 4 ECHO COMPLETE CLINICAL DIAGNOSIS: S/P CODE ECHOCARDIOGRAPHIC MEASUREMENTS (adult normal given) AC root (d.<3.7cm) 3.1 cm LV Septum d (<1.2 cm> 1.5 cm Valve Excursion 1.7 cm LV Septum (systole) 2.0 cm Left Atria (s.<4.0cm> 4.8 cm LVPW d(<1.2cm) 1.4 cm RV (d.<2.3cm) 2.5 cm LVPW (sytole) 1.8 cm LV diastole(<5.6CM) 4.5 cm MV E-F(>70mm/sec) cm LV systole 3.2 cm LVOT Diameter 1.9 cm MV exc.(>10mm) cm Est.ejection fraction (50-75%) % Pericardial Effusion N DOPPLER: LVIT cm/sec A 66.0 cm/sec E 88.0 cm/sec LA cm/sec RVSP 18.0 mmHg LVOT 76.0 cm/sec AOP1/2T m/s Asc. Ao 127 cm/sec RVOT 75.0 cm/sec RA cm/sec PA 100 cm/sec AV Gradient Peak 6.4 mmHg AV Mean 3.5 mmHg AV Area 1.7 cm MV Gradient Peak 7.6 mmHg MV Mean 2.9 mmHg MV Area cm COMMENTS: Sheet Tester: Joaquin HARRISONOE Lodging Facilities Manager: 4 Dr. Wiggins TAPE# PACS DATE OF SERVICE: 09/29/2016 Echocardiographic Report A very difficult imaging overall. FINDINGS: 1. Left ventricle grossly normal LV function, inflow characteristics are difficult because the patient is in atrial fibrillation. There does appear to be left ventricular hypertrophy. ECHOCARDIOGRAM REPORT [id number] KENDRA GEE 2. The left atrium appears to be moderately dilated. 3. The mitral valve has mild mitral regurgitation. 4. The right atrium is difficult to visualize, appears to be grossly normal. 5. The tricuspid valve is not well visualized, it is grossly normal. The RVSP is normal. 6. The pulmonic valve has mild pulmonic insufficiency. 7. The aortic valve appears to be grossly normal. 8. The pericardium appears to be a mild pericardial effusion without any evidence of tamponade physiology. CONCLUSIONS: The patient has what appears to be hypertensive heart disease with preserved of systolic function, mildly dilatation of the left atrial complex with no gross valvular abnormalities with mild pericardial effusion, which may be a result of the patient's CPR earlier. There does not appear to be any tamponade physiology. TRANSINT:[id number] Voice Confirmation ID: [id number] DOCUMENT ID: [id number] MARCOS WIGGINS MD at 1547 CC: [id number] DICTATION DATE: 09/29/16 174 TELEGRAPH PRINTER MECHANIC: 09/29/16 1826 [facility] IN [facility] [address] [place] [address]
--- NOTE | 2016-09-30 16:58 | NUR ---
PT SITTING UP EATING DINNER. STATES SHE ISNT HAPPY WITH MEAL SHE RECEIVED AND SON REQUESTS WE GET SOMETHING ELSE TO EAT. CALLED KITCHEN AND ORDERED SOUP PER REQUEST. NO FURTHER NEEDS AT THIS TIME. WILL CONITNUE TO MONITOR
--- NOTE | 2016-09-30 19:30 | NUR ---
REC'D TO CARE, PT ALERT AND ORIENTED. VSS. PRBC UNIT #2 INFUSING TO R UPPER ARM PIV, NO REDNESS OR SWELLING AT SITE, NO SIGN OF ADVERSE RXN. R FA PIV PATENT - SEE FLOWSHEET, NO REDNESS OR SWELLING AT SITE. LUNGS WITH FAINT CRACKLES B/L - ENCOURAGD DB&C - PT REPORTS "HURTS TO TAKE A DEEP BREATH" PT WITH RECENT HX OF CPR - WILL PAGE RE PAIN MED. WALLACE CATH PATENT AND DRAINING CLEAR, YELLOW URINE. PPP X 4. RESERVE L ARM. ALARMS ON AND C/L IN REACH.
--- NOTE | 2016-09-30 19:38 | NUR ---
Benedict SALDANA APN PAGED RE: PT C/O PAIN.
--- NOTE | 2016-09-30 19:56 | NUR ---
ADMIN PO NORCO PER PRN ORDER FOR C/O TENDERNESS "WHERE THEY DID CPR" DENIES ANY OTHER NEEDS. ALARMS ON AND C/L IN REACH.
--- NOTE | 2016-09-30 20:30 | NUR ---
PRBC COMPLETE, NO SIGN OF ADVERSE RXN. IV SL'D
--- NOTE | 2016-09-30 20:47 | NUR ---
PARTIAL BATH, BACK CARE AND WALLACE-CARE DONE. PAD CHANGED. PT REPORTS ADEQUATE PAIN RELIEF AT THIS TIME..
--- NOTE | 2016-09-30 23:10 | NUR ---
REASSESSMENT PER FLOWSHEET, NO ACUTE CHANGES. PT RESTING QUIETLY, WATCHING TV. VSS, DENIES NEEDS.
[2016-10-01] VITALS (23 sets, daily range): BP systolic 110–171; BP diastolic 69–106
--- NOTE | 2016-10-01 01:15 | NUR ---
RESTING WITH EYES CLOSED, NO SIGN OF DISTRESS. CM - CAF. ALARMS ON AND C/L IN REACH.
--- NOTE | 2016-10-01 03:29 | NUR ---
REASSESSMENT PER FLOWSHEET, NO ACUTE CHANGES. PT REPORTS ADEQUATE PAIN RELIEF AT THIS TIME, POSITIONED FOR COMFORT. NO OTHER CHANGES. C/L IN REACH.
[2016-10-01 04:23] LABS: BASOPHILS 0.2 % (0-2); EOSINOPHILS 5.6 % (0-7); HEMOGLOBIN 9.9 g/dL (12-16); IMMATURE GRANULOCYTES 0.5 % (0-5); LYMPHOCYTES 23.7 % (15-50); MCH 28.9 pg (26.0-34.0); MCHC 31.9 g/dL (31.0-37.0); MCV 90.6 fL (80.0-100.0); MEAN PLATELET VOLUME 10.9 fL (7.4-10.4); PLATELET COUNT 205 10x3/uL (130-400); RBC 3.42 10x6/uL (4.00-5.40); RDW 15.4 % (11.5-14.5)
[2016-10-01 04:32] LABS: WBC 5.5 10x3/uL (4.8-10.8)
--- NOTE | 2016-10-01 04:49 | NUR ---
PT RESTING WITH EYES CLOSED, VSS. NO SIGN OF DISTRESS.
[2016-10-01 04:59] LABS: ALBUMIN 2.2 g/dL (3.4-5.0); BILIRUBIN - TOTAL 0.22 mg/dL (0.2-1.3); CALCIUM 7.3 mg/dL (8.5-10.1); CARBON DIOXIDE 26.9 mmol/L (21.0-32.0); CREATININE - SERUM 1.2 mg/dL (0.6-1.3); PROTEIN - SERUM 5.6 g/dL (6.4-8.2)
[2016-10-01 05:00] LABS: POTASSIUM - SERUM 3.9 mmol/L (3.5-5.1)
--- NOTE | 2016-10-01 06:30 | NUR ---
COMPLETE BATH AND LINEN CHANGE DONE. PT DID MUCH SHE COULD. REPOSITIONED UP IN BED WITH PILLOWS. ALARMS ON AND C/L IN REACH.
--- NOTE | 2016-10-01 06:55 | NUR ---
DR. WIGGINS IN TO SEE PT.
--- NOTE | 2016-10-01 07:22 | NUR ---
REPORT GIVEN. PRN NORCO PER PRN ORDER GIVEN.
--- NOTE | 2016-10-01 07:25 | NUR ---
REPORT RECD PT CARE ASSUMED. PT IS ALERT AND ORIENTED X 4. CONTROLLED AFIB PER CM. PPP- WALLACE/SCDS IN PLACE. PT C/O SORENESS SUBSTERNALLY, MEDICATION GIVEN PER EMAR. SEE SHIFT ASSESSMENT FOR DETAILS. VSS WILL MONITOR.
--- NOTE | 2016-10-01 10:00 | NUR ---
PT FAMILY AT BEDSIDE TO SEE PT BEFORE PROCEDURE.
--- NOTE | 2016-10-01 10:07 | NUR ---
NUTRITION MONITORING & EVAL PT REMAINS IN ICU. CHANGE DIET TO REG DIABETIC DIET NO RENAL MD FOLLOWING, BUN, CR, K+ WNL. RD FOLLOWING
--- NOTE | 2016-10-01 11:30 | NUR ---
PT TO OR FOR CARDIOVERSION.
--- NOTE | 2016-10-01 14:00 | NUR ---
PT RETURNED FROM SENIOR SALES COMPENSATION ANALYST. PT UP TO CHAIR WITH PT. TOLERATING WELL. PT IN SR PER CM AT THIS TIME.
--- NOTE | 2016-10-01 14:03 | CN ---
PATIENT NAME:KENDRA TYSON MEDICAL RECORD: [id number] : 41 LOCATION:[id number] ADMIT DATE: 09/29/16 ACCOUNT: [id number] CONSULTING PHYSICIAN: EARNESTINE CARR MD REFERRING PHYSICIAN: JESSE CARLOS MD DATE OF CONSULTATION: 09/29/2016 CONSULT REQUESTING PHYSICIAN: Jesse Carlos MD. REASON FOR CONSULTATION: Status post respiratory arrest. HISTORY OF PRESENT ILLNESS: Ms. Tyson is a 71-year-old female, who has a history of chronic anemia. The patient underwent a bone marrow biopsy today. While she was given sedation, the patient arrested. She has some chest compression and the patient recovered quickly. Now, she is in the ICU. The patient is awake and alert, complaining of chest pain by compression. REVIEW OF SYSTEMS: Mainly in the history of present illness. PAST MEDICAL HISTORY: 1. Multiple sclerosis. She is followed by Dr. Ulloa. 2. Anxiety and depression. 3. COPD. 4. Gastroesophageal reflux disease. 5. Gout. 6. Stage III chronic kidney disease. 7. Diabetes mellitus type 2. 8. Hypertension. 9. History of CVA. 10. Chronic anemia. 11. Gout. PAST SURGICAL HISTORY: 1. Cholecystectomy. 2. Splenectomy. 3. Knee replacement. ALLERGIES: SHE IS ALLERGIC TO CODEINE AND COMPAZINE. PRESENT MEDICATIONS: On [employer] was reviewed. PERSONAL AND SOCIAL HISTORY: The patient is still an everyday smoker. She is a nondrinker. FAMILY HISTORY: Significant for neurological disorder, Alzheimer disease and cardiovascular disease. PHYSICAL EXAMINATION: GENERAL: Now, the patient is lying comfortably in bed. She is not in acute distress. VITAL SIGNS: The blood pressure is 116/76, pulse is 93, respirations 14, temperature 97.3 and SPO2 is 98% on 2 liters nasal cannula. HEENT: Conjunctivae pink, sclerae nonicteric. NECK: Supple. No JVD. CHEST: Excursion is minimal on both sides. No wheeze and no rales. CONSULT REPORT [id number] KENDRA TYSON HEART: Rhythm regular, normal sound, no murmur. ABDOMEN: Soft, bowel sounds present. No hepatosplenomegaly. RECTAL: Deferred. EXTREMITIES: No cyanosis, no clubbing and no pedal edema. SKIN: Warm, normal turgor. CENTRAL NERVOUS SYSTEM: The patient is awake and alert. There are no obvious cranial nerve abnormality. The gait was not tested. CHEST RADIOGRAPH: There is no acute infiltrate. LABORATORY DATA: ABG: The pH is 7.30, pCO2 is 49.1 and pO2 is 230. Chemistry CBC: WBC 3.04, hemoglobin 8.8, hematocrit 27.7 and the platelet count is 226. IMPRESSION: 1. Status post respiratory arrest. 2. Respiratory acidosis secondary to status post respiratory arrest. 3. Chronic obstructive pulmonary disease without exacerbation. 4. Atrial fibrillation. 5. Chronic anemia. 6. Multiple sclerosis. 7. Tobacco dependence syndrome. RECOMMENDATION: 1. Start albuterol and ipratropium nebulizer. 2. Cardiac workup per cardiology. 3. Supplemental oxygen is required. 4. Controlled oxygen. 5. Follow up labs and chest radiograph in the morning. Dr. Carlos, thank you for involving me in the care of Ms. Tyson. TRANSINT:[id number] Voice Confirmation ID: [id number] DOCUMENT ID: [id number] EARNESTINE CARR MD at 1403 CC: JESSE CARLOS MD [id number] DICTATION DATE: 09/29/16 1654 DITCHING MACHINE OPERATOR: 09/29/16 1716 ADM IN [place] [id number] [place] [address]
--- NOTE | 2016-10-01 16:00 | NUR ---
PT HELPED BACK TO BED AT THIS TIME. PT AMBULATES WELL.
--- NOTE | 2016-10-01 17:30 | NUR ---
TRAY PROVIDED TO PT. PT PULLED UP IN BED AND POSITIONED FOR COMFORT. VSS.
--- NOTE | 2016-10-01 19:15 | NUR ---
SHIFT ASSESSMENT COMPLETE. PT IS LYING IN BED WITH NO COMPLAINTS. SHE IS A&O X4. VSS. S1S2 AUDIBLE, 75 BPM NORMAL SINUS RHYTHM. LUNG SOUNDS CLEAR WITH NO SIGNS OF DISTRESS NOTED. PT IS ON ROOM AIR AT THIS TIME. BS ARE ACTIVE X4. ABD IS FLAT AND NON-TENDER TO TOUCH. WALLACE CATH DRAINING CLEAR YELLOW URINE. SHE IS IN GOOD SPIRITS AT THIS TIME WITH NO REQUESTS. CALL LIGHT IN REACH. BED IN LOWEST POSITION. WILL CONT TO MONITOR.
--- NOTE | 2016-10-01 21:00 | NUR ---
COMPLETE LINEN CHANGE AT THIS TIME. PT WANTED TO SIT UP IN THE CHAIR. PARTIAL ASSIST NEEDED. NO FURTHER REQUESTS AT THIS TIME. WILL CONT TO MONITOR.
--- NOTE | 2016-10-01 23:30 | NUR ---
REASSESSMENT COMPLETE. PT IS SITING UPIN BED WITH NO SIGNS OF DISTRESS NOTED. SHE STATES THAT SHE IS NOT REALLY IN ANY PAIN, BUT RATED IT A 3/10 ON HER RIBS. REPOSITIONED HER FOR COMFORT. SHE STATES THAT SHE WANTS TO SLEEP IN HIGH FOWLERS BC IT IS MORE COMFORTABLE FOR HER. APPLIED LOTION TO HER BACK, FEET AND LEGS. PROVIDED A 5 MIN BACK RUB. SHE STATES THAT SHE IS NOW READY FOR BED. CALL LIGHT IN REACH. BED IN LOWEST POSITION. WILL CONT TO MONITOR.
[2016-10-02] VITALS (12 sets, daily range): BP systolic 140–169; BP diastolic 54–96
--- NOTE | 2016-10-02 01:25 | NUR ---
PT SITTING UP IN BED DOING A BREATHING TREATMENT AT THIS TIME. HER O2 SAT STARTED TO TREND DOWN. O2 AT 2 L NC INSTEAD OF ON ROOM AIR. O2 SAT IS NOW 98%. SHE DENIES ANY REQUESTS AT THIS TIME. CALL LIGHT IN REACH. BED IN LOWEST POSITOIN. WILL CONT WITH POC.
--- NOTE | 2016-10-02 03:00 | NUR ---
REASSESSMENT COMPLETE AT THIS TIME. XRAY AT BEDSIDE. PT IS IN GOOD SPIRITS. SHE STATES THAT HER PAIN IS CONTROLLED EXCEPT FOR WHEN SHE COUGHS. SHE IS SITTING UP IN HIGH FOWLERS AT THIS TIME AND SHE STATES THAT THIS IS THE MOST COMFORTABLE POSITION FOR HER. VSS. CALL LIGHT IN REACH. WILL CONT TO MONITOR.
[2016-10-02 04:10] LABS: BASOPHILS 0.2 % (0-2); EOSINOPHILS 2.9 % (0-7); HEMATOCRIT 29.6 % (36.0-48.0); HEMOGLOBIN 9.6 g/dL (12-16); IMMATURE GRANULOCYTES 0.5 % (0-5); MCH 29.1 pg (26.0-34.0); MCHC 32.4 g/dL (31.0-37.0); MCV 89.7 fL (80.0-100.0); MEAN PLATELET VOLUME 10.6 fL (7.4-10.4); MONOCYTES 6.1 % (2-11); NEUTROPHILS 77.3 % (40-80); PLATELET COUNT 194 10x3/uL (130-400); RDW 15.4 % (11.5-14.5); WBC 5.8 10x3/uL (4.8-10.8)
[2016-10-02 04:35] LABS: ALBUMIN 2.3 g/dL (3.4-5.0); ANION GAP 10.7 mmol/L (8-16); BILIRUBIN - TOTAL 0.23 mg/dL (0.2-1.3); CALCIUM 7.2 mg/dL (8.5-10.1); CARBON DIOXIDE 25.1 mmol/L (21.0-32.0); CREATININE - SERUM 1.1 mg/dL (0.6-1.3); MAGNESIUM - SERUM 1.4 mg/dL (1.8-2.4); POTASSIUM - SERUM 3.8 mmol/L (3.5-5.1); PROTEIN - SERUM 5.6 g/dL (6.4-8.2)
--- NOTE | 2016-10-02 05:00 | NUR ---
PT SITTING UP IN BED WITH NO REQUESTS AT THIS TIME. SHE STATES THAT SHE IS WORRIED ABOUT A MS SHOT THAT SHE RECIEVES DAILY AND SHE HAS NOT BEEN GETTING IT WHILE SHE HAS BEEN IN THE HOSPITAL. I WILL REPORT THIS TO THE ONCOMING NURSE. D/C'D MADISON JACOME. EDUCATED THE PT THAT SHE HAD TO URINATE ON HER OWN BEFORE LEAVING THIS UNIT OR HOSPITAL. SHE STATES THAT SHE UNDERSTANDS. VSS. NO FURTHER REQUESTS. BED IN LOWEST POSITION. WILL CONT TO MONITOR.
--- NOTE | 2016-10-02 07:15 | NUR ---
DR WIGGNIS STATES THAT PT IS STABLE FROM CARDIOLOGY STANDPOINT AND HE STATES HE WILL CALL DR ATKINS TO DISCUSS WHETHER PT CAN TRANSFER TO FLOOR OR POSSIBLY DISCHARGE HOME. VITAL SIGNS STABLE
--- NOTE | 2016-10-02 09:00 | NUR ---
PT UP TO CHAIR WITH MINIMAL ASSISTANCE. RESTING AT THIS TIME AND APPEARS TO BE MORE COMFORTABLE. VITAL SIGNS STABLE. WILL CONTINUE TO MONITOR
--- NOTE | 2016-10-02 11:00 | NUR ---
PT REMAINS UP IN CHAIR AT TIME AND STATES PAIN IS SUBSIDING. HAS NO COMPLAINTS AT THIS TIME. FAMILY CALLED AND UPDATE GIVEN TO SON. VITAL SIGNS STABLE. WILL CONTINUE TO MONITOR
--- NOTE | 2016-10-02 11:23 | NUR ---
Patient Name: KENDRA GEE Encounter No: [id number] : 1945 Primary Insurance: MEDICARE A & B Anticipated DC Date: 10-03-2016 Planned Disposition: Home with Home Health External Planned Provider: [facility] DCP follow-up note: Patient and family in agreement with discharge plan. No changes to plan. Case management will follow and assist as needed. Keena Ng
--- NOTE | 2016-10-02 13:00 | NUR ---
PT SITTING UP IN CHAIR WITH NO ACUTE CHANGES IN STATUS. WAITING FOR TRANSFER TO FLOOR. WILL CONITNUE TO MONITOR
--- NOTE | 2016-10-02 15:00 | NUR ---
PT ASSISTED BACK TO BED. NO ACUTE CHANGES. WAITING FOR TRANSFER.
--- NOTE | 2016-10-02 19:15 | NUR ---
REPORT RECIEVED, SHIFT ASSESSMENT COMPLETE, PT IS ALERT AND ORIENTED, ON RA WITH 94% O2 SAT. LUNGS CLEAR IN ALL LOBES, S1S2, CM-NSR, PATENT RIGHT UPPER ARM PIV WITH NS INFUSING VIA PUMP, ABDOMEN IS SOFT AND ROUND WITH ACTIVE BS, ALL PPP, VSS, CALL LIGHT IN REACH
--- NOTE | 2016-10-02 21:30 | NUR ---
C/O OF N/V, PRN ZOFRAN GIVEN
--- NOTE | 2016-10-02 23:07 | NUR ---
PT RESTING AT THIS TIME, NO NEEDS NOTED, WILL CON'T TO MONITOR
--- NOTE | 2016-10-03 01:29 | NUR ---
NO NEEDS NOTED AT THIS TIME, WILL CON'T TO MONITOR
[2016-10-03 03:00] VITALS: BP 144/86
--- NOTE | 2016-10-03 03:20 | NUR ---
LAB IN ROOM FOR DAILY LAB DRAW
[2016-10-03 03:52] LABS: BASOPHILS 0.2 % (0-2); EOSINOPHILS 5.7 % (0-7); HEMATOCRIT 32.9 % (36.0-48.0); HEMOGLOBIN 10.6 g/dL (12-16); IMMATURE GRANULOCYTES 0.5 % (0-5); LYMPHOCYTES 14.5 % (15-50); MCH 28.8 pg (26.0-34.0); MCHC 32.2 g/dL (31.0-37.0); MCV 89.4 fL (80.0-100.0); MEAN PLATELET VOLUME 10.2 fL (7.4-10.4); MONOCYTES 5.9 % (2-11); NEUTROPHILS 73.2 % (40-80); PLATELET COUNT 224 10x3/uL (130-400); RBC 3.68 10x6/uL (4.00-5.40); WBC 6.5 10x3/uL (4.8-10.8)
[2016-10-03 04:07] LABS: ANION GAP 10.9 mmol/L (8-16); BILIRUBIN - TOTAL 0.46 mg/dL (0.2-1.3); CALCIUM 8.5 mg/dL (8.5-10.1); CARBON DIOXIDE 28.2 mmol/L (21.0-32.0); CREATININE - SERUM 1.1 mg/dL (0.6-1.3); POTASSIUM - SERUM 4.1 mmol/L (3.5-5.1)
[2016-10-03 04:08] LABS: ALBUMIN 3.1 g/dL (3.4-5.0); PROTEIN - SERUM 7.2 g/dL (6.4-8.2)
[2016-10-03 08:00] VITALS: BP 164/53
--- NOTE | 2016-10-03 08:11 | NUR ---
CALLED MED 2, SPOKE WITH MARVEL, NOTED ROOM 2133 FOR PT TO BE TRANSFERRED TO IS STILL BEING CLEANED AT THIS TIME AND WILL BE FINISHED AND READY FOR PT ARRIVAL IN 10 MIN. WILL TRANSFER PT SHORTLY. REPORT HAD ALREADY BEEN GIVEN BY NAYELI. PT DENIES ANY NEEDS. NO ACUTE DISTRESS NOTED. WILL CONTINUE PLAN OF CARE.
--- NOTE | 2016-10-03 08:20 | NUR ---
PT TRANSFERRED TO 2133 AT THIS TIME VIA WHEELCHAIR. PTS SON SUSAN NOTIFIED OF TRANSFER. NO ACUTE DISTRESS NOTED. TRANSFERRED WITH ALL PERSONAL ITEMS.
--- NOTE | 2016-10-03 08:45 | NUR ---
PT ARRIVED A TRANSFER FROM ICU VIA W/C. PT ALERT BUT NOT ORIENTED. SHE STATES "JENNY WHY IM HERE OR WHATS GOING ON" ORIENTED PT TO TIME, PLACE, SITUATION AND PT REORIENTED EASILY. RR NONLABORED WITH NC@2L IN PLACE. PT HAS A R.FA PIV WITH DRSG CDI AND SWAB CAPS IN USE CURRENTLY SL. PT DENIES ANY CURRENT PAIN OR NEEDS. CL IN REACH, BED IN LOWEST, SIDE RAILS X2. WILL CHECK TRANSFERRED ORDERS AND CPOC.
--- NOTE | 2016-10-03 09:50 | NUR ---
Nutrition Follow Up: Chart reviewed. Pt is eating 78% meal avg on a diabetic diet. Noted pt with some c/o N/V. Wt gain since admit noted. No BM per chart. Meds and labs reviewed. Rec continue current diet. RD following.
--- NOTE | 2016-10-03 10:45 | NUR ---
MORNING MEDICATIONS PASSED AND PT SWALLOWED WITHOUT ANY DIFFICULTIES. PT C/O ACHING DEEP PAINS IN HER RIBS FROM WHEN SHE WAS CODED. REQUESTED AND WAS PROVIDED WITH PRN PAIN MEDICATION. PT VOICED THANKS AND DENIED ANY FURTHER NEEDS AT THIS TIME. CL IN REACH. WILL CPOC.
[2016-10-03 12:25] VITALS: BP 114/50
--- NOTE | 2016-10-03 12:30 | NUR ---
FSBS 115. NO INSULIN REQUIRED PER SS INSULIN. PT RESTING WITH FAMILY AT BEDSIDE. DENIES ANY CURRENT NEEDS. WILL CPOC.
[2016-10-03 16:24] VITALS: BP 146/73
--- NOTE | 2016-10-03 17:54 | NUR ---
PROVIDED PT WITH PRN PAIN MEDICATION FOR BILAT RIB PAIN FROM CHEST COMPRESSIONS PREVIOUSLY. PT VOICED THANKS. PT IS SITTING UP IN BED RESTING QUIETLY WATCHING TV AND DENIES ANY FURTHER NEEDS AT THIS TIME. CL IN REACH, BED IN LOWEST, SIDE RAILS X2. WILL CPOC.
[2016-10-03 19:00] VITALS: BP 104/69
[2016-10-04] VITALS: BP 129/64
[2016-10-04 04:00] VITALS: BP 141/63
[2016-10-04 06:28] LABS: BASOPHILS 0.1 % (0-2); EOSINOPHILS 5.7 % (0-7); HEMATOCRIT 30.8 % (36.0-48.0); HEMOGLOBIN 9.8 g/dL (12-16); IMMATURE GRANULOCYTES 0.1 % (0-5); LYMPHOCYTES 13.6 % (15-50); MCH 28.7 pg (26.0-34.0); MCHC 31.8 g/dL (31.0-37.0); MCV 90.1 fL (80.0-100.0); MEAN PLATELET VOLUME 10.3 fL (7.4-10.4); MONOCYTES 8.9 % (2-11); NEUTROPHILS 71.6 % (40-80); PLATELET COUNT 226 10x3/uL (130-400); RBC 3.42 10x6/uL (4.00-5.40); RDW 15.4 % (11.5-14.5); WBC 6.9 10x3/uL (4.8-10.8)
[2016-10-04 06:45] LABS: ALBUMIN 2.9 g/dL (3.4-5.0); ANION GAP 12.3 mmol/L (8-16); BILIRUBIN - TOTAL 0.4 mg/dL (0.2-1.3); CALCIUM 8.5 mg/dL (8.5-10.1); CARBON DIOXIDE 24.9 mmol/L (21.0-32.0); CREATININE - SERUM 1.3 mg/dL (0.6-1.3); POTASSIUM - SERUM 4.2 mmol/L (3.5-5.1); PROTEIN - SERUM 6.6 g/dL (6.4-8.2)
--- NOTE | 2016-10-04 07:40 | NUR ---
PT AOX4 RESP EVEN AND NONLABORED PT DENIES NEEDS AT THIS TIME IV TO RIGHT FOREARM PATENT AND INTACT AT THIS TIME SRX2 BED AT LOWEST SETTING CALL LIGHT WITHIN REACH WILL CONTINUE TO MONITOR
--- NOTE | 2016-10-04 07:45 | NUR ---
PT AOX4 RESP EVEN AND NONLABORED PT DENIES NEEDS AT THIS TIME IV PATENT AND INTACT AT THIS TIME SRX2 BED AT LOWEST SETTING CALL LIGHT WITHIN REACH WILL CONTINUE TO MONITOR
[2016-10-04 08:49] VITALS: BP 124/64
[2016-10-04 13:18] VITALS: BP 156/71
--- NOTE | 2016-10-04 14:49 | NUR ---
Rehab Note- Acute Rehab Prescreen order received. The patient appears to be a good acute rehab candidate. Spoke with CELSO Padgett about acute rehab order. Plan to admit to [facility] acute rehab when ready fpr discharge from the acute hospital. Will follow at this time. Thank you for this referral! Winnie Cui RN Clinical Liaison, [facility] Rehab
--- NOTE | 2016-10-04 19:04 | NUR ---
LATE ENTRY 1600 CM VISITED WITH PATIENT REGARDING EVALUATION FOR ACUTE REHAB. PATIENT WAS TRANSFERED OUT OF ICU 10/03/16. CM SPOKE WITH THE PATIENT. SHE ASK IF I WANTED A HONEST ANSWER. I SAID YES, PLEASE. "I DO NOT WANT TO GO TO REHAB". "I WANT TO GO HOME WITH MY HELP". SHE RECEIVES [facility] 5/DAYS A WEEK FROM 0830- 1630 THRU [facility]. SHE STATES THEN HER DAUGHTER IN LAW WILL ASSIST HER IN THE EVENING. SHE STATES "I REALLY WANT TO GO TO MY HOME". CM WILL FOLLOW TO ASSIST. WILL SPEAK WITH . LEFT VOICE MAIL MESSAGE FOR TEN, THE WEEKEND REHAB SCREENER
--- NOTE | 2016-10-04 19:39 | NUR ---
RESUMED CARE OF PT, LYING IN BED RESPIRATIONS EVEN AND UNLABORED ON 2LPM VIA NC. RIGHT WRIST INFUSING NS @ 10. 81 SR ON TELEMETRY. CALL LIGHT IN REACH. WILL CONTINUE TO MONITOR. SEE NURSE ASSESSMENT.
[2016-10-04 20:23] VITALS: BP 155/55
--- NOTE | 2016-10-04 21:04 | NUR ---
BACK FROM XRAY
--- NOTE | 2016-10-05 00:48 | NUR ---
LYING IN BED WITH EYES CLOSED, CALL LIGHT IN REACH. WILL CONTINUE TO MONITOR.
[2016-10-05 01:29] VITALS: BP 142/51
[2016-10-05 05:44] VITALS: BP 162/79
--- NOTE | 2016-10-05 06:12 | NUR ---
NO CHANGES FROM PREVIOUS ASSESSMENT, CALL LIGHT IN REACH. NORCO GIVEN FOR PAIN
[2016-10-05 07:58] VITALS: BP 142/57
--- NOTE | 2016-10-05 08:02 | NUR ---
AM ROUNDING DONE WITH NO NEEDS VOICED PER PATIENT. ON HERT MONITOR SHOWING SR, HR 74. ON 2L PER NC. RIGHT WRIST SEEN WITH NS INFUSING AT KVO STATUS. RESERVE LEFT ARM. ON EP, NO LABS ORDERED THIS AM. WILL CPOC.
--- NOTE | 2016-10-05 09:17 | NUR ---
DR MARKS HERE TO SEE PATIENT AND FAMILY WHICH ARE NOT HERE. SHE ASKED THAT THE PATIENT HAVE HER FAMILY HERE TOMORROW BETWEEN 8-9 AM TO SPEAK TO THEM.
[2016-10-05 11:54] VITALS: BP 132/64
--- NOTE | 2016-10-05 14:02 | NUR ---
Rehab Note- Spoke with the patient after seeing notation that the son wants her to come to acute rehab. The patient stated that her son & his girlfriend are living in her home not working and just don't want her there and that they can get out. Stated she has a caregiver that is there 6 days a week and can be there anytime and is very good to her. Stated she just wants to go home and not go to acute rehab. Will continue to follow at this time. Thank you for this referral! Winnie Cui RN Clinical Liaison, [facility] Rehab
--- NOTE | 2016-10-05 14:37 | NUR ---
ASSISTED TO BATHROOM WITH WALKER. DENIES ANY FURTHER NEEDS. BACK TO CHAIR.
[2016-10-05 16:12] VITALS: BP 145/67
--- NOTE | 2016-10-05 17:51 | NUR ---
STILL IN CHAIR AT THIS TIME. WILL CONTINUE TO MONITOR.
--- NOTE | 2016-10-05 19:49 | NUR ---
RESUMED CARE OF PT, LYING IN BED RESPIRATIONS EVEN AND UNLABORED ON 2LPM VIA NC. RIGHT WRIST INFUSING NS @ KVO. REQUESTS PAIN PILL FOR BACK AND FLANK PAIN. CALL LIGHT IN REACH. WILL CONTINUE TO MONITOR. SEE NURSE ASSESSMENT.
[2016-10-05 20:00] VITALS: BP 192/91
--- NOTE | 2016-10-05 23:16 | NUR ---
LYING IN BED WITH EYES CLOSED, CALL LIGHT IN REACH. WILL CONTINUE TO MONITOR.
[2016-10-06] VITALS: BP 158/89
[2016-10-06 04:00] VITALS: BP 159/66
[2016-10-06 06:25] LABS: BASOPHILS 0.2 % (0-2); HEMATOCRIT 32.9 % (36.0-48.0); HEMOGLOBIN 10.6 g/dL (12-16); IMMATURE GRANULOCYTES 0.2 % (0-5); LYMPHOCYTES 17.9 % (15-50); MCHC 32.2 g/dL (31.0-37.0); MCV 89.9 fL (80.0-100.0); MONOCYTES 9.7 % (2-11); PLATELET COUNT 236 10x3/uL (130-400); RBC 3.66 10x6/uL (4.00-5.40); RDW 15.2 % (11.5-14.5); WBC 6.4 10x3/uL (4.8-10.8)
[2016-10-06 06:53] LABS: ALBUMIN 3.2 g/dL (3.4-5.0); ANION GAP 13.2 mmol/L (8-16); BILIRUBIN - TOTAL 0.4 mg/dL (0.2-1.3); CALCIUM 9.1 mg/dL (8.5-10.1); CARBON DIOXIDE 24.9 mmol/L (21.0-32.0); CREATININE - SERUM 1.2 mg/dL (0.6-1.3); POTASSIUM - SERUM 4.1 mmol/L (3.5-5.1); PROTEIN - SERUM 6.9 g/dL (6.4-8.2)
--- NOTE | 2016-10-06 07:30 | NUR ---
REPORT RECIVED. PT RESTING QUIETLY, RR EVEN AND UNLABORED. ASSESSMENT PERFORMED. PT SINUS RYTHYM ON THE MONITOR. DENIES NEEDS AT THIS TIME. INTORDUCED SELF AND PLACED NAME ON WHITE BOARD, WILL CTM.
[2016-10-06 08:00] VITALS: BP 172/80
--- NOTE | 2016-10-06 10:30 | NUR ---
IV RESTIED. 20 G PLACED IN RIGHT WRIST X1 STICK. NS RUNNING AT 30ML/HR PER ORDERS. WILL CTM.
[2016-10-06 12:00] VITALS: BP 177/81
--- NOTE | 2016-10-06 14:44 | NUR ---
Patient Name: KENDRA GEE Encounter No: [id number] : 1945 Primary Insurance: MEDICARE A & B Anticipated DC Date: 10-06-2016 Planned Disposition: Home with Home Health External Planned Provider: [facility] [facility] DCP follow-up note: CM RECEIVED ORDER FOR INPATIENT REHAB PRESCREENING, SPOKE TO TEN OF [facility] INPATIENT REHAB WHO REPORTED TO CM THAT PT IS NOT INTERESTED IN INPATIENT REHAB AND HAS PLAN TO GO HOME WITH HOME HEALTH. CM MET WITH PT IN ROOM TO DISCUSS DISCHARGE NEEDS AND PLANNING. CM DISCUSSED AVAILABILITY OF HOME HEALTH, REHAB SERVICES AND MEDICAL EQUIPMENT. PT DENIES NEED OF INPATIENT REHAB OR [facility] FACILITY REHAB. PT REPORTS SHE WILL BE GOING HOME WITH HOME HEALTH AND WANTS PRECIOUS TO CONTINUE WITH THERAPY AT HOME. PT REPORTS SHE HIS STRONG ENOUGH TO GO HOME. PT REPORTS HER SON WILL PICK HER UP TO TRANSPORT HOME AT DISCHARGE. IMPORTANT MESSAGE FROM MEDICARE PROVIDED AND EXPLAINED. CHOICE SIGNED FOR [facility]. CM CALLED [employer], , SPOKE TO JOSE WHO INFORMED CM THAT PT WAS DISCHARGED YESTERDAY, 10-05-16. CM NOTIFIED KAYLEEN CARTWRIGHT OF NEED FOR NEW HOME HEALTH PHYSICAL THERAPY ORDERS FOR DISCHARGE. CM TO ARRANGE HOME HEALTH WITH [employer] AT DISCHARGE. Roddy Purdy, CASE MANAGEMENT
--- NOTE | 2016-10-06 16:46 | NUR ---
Patient Name: KENDRA GEE Encounter No: [id number] : 1945 Primary Insurance: MEDICARE A & B Anticipated DC Date: 10-06-2016 Planned Disposition: Home with Home Health External Planned Provider: [facility] DCP follow-up note: CM RECEIVED DISCHARGE AND HOME HEALTH ORDER, CALLED [facility], , SPOKE TO JOSE PROVIDED REFERRAL INFORMATION FOR ADMIT TOMORROW. CM FAXED HOME HEALTH REFERRAL TO [facility] AT [phone].. PT NOTIFIED WHO IS IN AGREEMENT WITH DISCHARGE HOME WITH [facility], SHE HAS NOTIFIED HER SON TO PICK HER UP TODAY. Roddy Purdy, CASE MANAGEMENT
--- NOTE | 2016-10-06 17:45 | NUR ---
PT DISCHARGED. IV REMOVED WITH CATHETER TIP INTACT. RR EVEN AND UNLABORED. STRIKER OFF REMOVED AND RETURNED TO PRINTING EQUIPMENT MECHANIC. PT EXPRESSED SATISFACTION WITH CARE. FAMILY AT BEDSIDE, MEATMAN WILL TAKE PT DOWN VIA WHEELCHAIR.
[2016-10-07 07:25] LABS: SPE - ALBUMIN 3.1 g/dL (2.9-4.4); SPE - ALPHA-1 GLOBULIN 0.2 g/dL (0.0-0.4); SPE - ALPHA-2 GLOBULIN 0.7 g/dL (0.4-1.0); SPE - BETA GLOBULIN 0.7 g/dL (0.7-1.3); SPE - GAMMA GLOBULIN 1.3 g/dL (0.4-1.8); SPE - M-SPIKE Note: g/dL (Not Observed); SPE - TOTAL PROTEIN 6.1 g/dL (6.0-8.5)
== END 2016-10-06 18:05 | disposition home or self-care (01) | DRG 189 ==
LOC: D.ER 06:11 → D.OPS 06:11 → EDSTATUS 08:00 → D.OPS 08:00 → D.SP 08:00 → D.ICU 12:13 → D.M2 10-03 08:52
PROVIDERS: Family Medicine; Internal Medicine Hematology & Oncology; Specialist; ADMIT Family Medicine
PROC: 5A12012 Performance of Cardiac Output, Single, Manual (ICD-10-PCS; 2016-09-29)
PROC: 0T9B70Z Drainage of Bladder with Drainage Device, Via Natural or Artificial Opening (ICD-10-PCS; 2016-09-29)
PROC: 07DR3ZX Extraction of Iliac Bone Marrow, Percutaneous Approach, Diagnostic (ICD-10-PCS; principal; 2016-09-29 08:00)
DX: J96.00 Acute respiratory failure, unspecified whether with hypoxia or hypercapnia (principal); E87.2 Acidosis; N17.9 Acute kidney failure, unspecified; F17.203 Nicotine dependence unspecified, with withdrawal; C90.00 Multiple myeloma not having achieved remission; D63.8 Anemia in other chronic diseases classified elsewhere; E11.22 Type 2 diabetes mellitus with diabetic chronic kidney disease; I12.9 Hypertensive chronic kidney disease with stage 1 through stage 4 chronic kidney disease, or unspecified chronic kidney disease; N18.3 Chronic kidney disease, stage 3 (moderate); E78.5 Hyperlipidemia, unspecified; I48.91 Unspecified atrial fibrillation; G35 Multiple sclerosis; F41.9 Anxiety disorder, unspecified; F32.9 Major depressive disorder, single episode, unspecified; Z86.73 Personal history of transient ischemic attack (TIA), and cerebral infarction without residual deficits

== ENCOUNTER 2016-10-07 13:20 | Inpatient (IN) | payer MEDICARE ==
[2016-10-07] VITALS (8 sets, daily range): BP systolic 114–190; BP diastolic 72–102; Ht 167.6 cm; Wt 100.2 kg
[~2016-10-07] VITALS: Ht 167.6 cm; Wt 100.2 kg
[~2016-10-07 13:20] MED LIST changes: +ELAVIL25 MG PO; +GLUCOPHAGE500 MG PO
[2016-10-07 13:44] LABS: BASOPHILS 0.1 % (0-2); EOSINOPHILS 2.7 % (0-7); HEMATOCRIT 33.5 % (36.0-48.0); HEMOGLOBIN 10.8 g/dL (12-16); IMMATURE GRANULOCYTES 0.5 % (0-5); LYMPHOCYTES 13.4 % (15-50); MCH 28.7 pg (26.0-34.0); MCHC 32.2 g/dL (31.0-37.0); MCV 89.1 fL (80.0-100.0); MEAN PLATELET VOLUME 10.1 fL (7.4-10.4); MONOCYTES 7.5 % (2-11); NEUTROPHILS 75.8 % (40-80); PLATELET COUNT 237 10x3/uL (130-400); RBC 3.76 10x6/uL (4.00-5.40); RDW 15.2 % (11.5-14.5)
[2016-10-07 13:45] LABS: WBC 8.2 10x3/uL (4.8-10.8)
[2016-10-07 13:58] LABS: INR 1.14 (0.85-1.17); PROTIME 14.5 SECONDS (11.6-15.0)
[2016-10-07 13:59] LABS: APTT 51.4 SECONDS (22.8-39.4)
[2016-10-07 14:03] LABS: ALBUMIN 3.2 g/dL (3.4-5.0); ANION GAP 16.8 mmol/L (8-16); BILIRUBIN - TOTAL 0.5 mg/dL (0.2-1.3); CALCIUM 9.2 mg/dL (8.5-10.1); CARBON DIOXIDE 23.3 mmol/L (21.0-32.0); MAGNESIUM - SERUM 1.4 mg/dL (1.8-2.4); POTASSIUM - SERUM 4.1 mmol/L (3.5-5.1); PROTEIN - SERUM 6.2 g/dL (6.4-8.2)
--- NOTE | 2016-10-07 17:10 | NUR ---
PT ARRIVED BY STRETCHER TO ICU. ASSISTED OVER TO BED X 3 NURSES. PT TOLERATED WELL. PANTS AND UNDERWEAR REMOVED. PT HAD SATURATED DIAPER ON. MARIN AREA CLEANED AND PT PLACED ON ADDITIONAL PAD WITH WHITE ABSORBENT PADS X2.
--- NOTE | 2016-10-07 17:33 | NUR ---
SPOKE TO NATHALYRN @0891 PATIENT UNABLE TO COOPERATE TO OBTAIN MRI THIS PM; TRY AGAIN IN AM.
--- NOTE | 2016-10-07 17:45 | NUR ---
DR. MARKS AT BEDSIDE WITH PT'S SON. DISCUSSED BONE MARROW BIOPSY RESULTS AND DX OF MULTIPLE MYELOMA. DR. MARKS GAVE HIM A COPY OF THE PATHOLOGY RESULTS.
--- NOTE | 2016-10-07 17:47 | NUR ---
PT'S SON AT BEDSIDE. REFUSING TO HAVE PT SEEN BY DR. JAMIL. REPORTS THAT THEY DO NOT HAVE A GOOD HISTORY WITH HIM. HE HAS REPORTED THAT HER NEUROLOGIST IS DR. DYER AT [facility] IN AND HE HAS SPOKEN WITH HIS NURSE. HE STATES THAT SHE SAID THAT THEY WOULD ACCEPT HER A PT AT [facility].
--- NOTE | 2016-10-07 18:23 | NUR ---
PT'S SON CONCERNED ABOUT A QUARTER SIZED BUMP TO RIGHT TEMPORAL AREA. STATES "DID YOU BUMP HER HEAD WHEN YOU TRANSFERRED HER? THAT'S WHEY I DON'T LIKE BEING OUT IN THE WAITING ROOM". NO REDNESS NOTED AND NO BRUISING NOTED. PT'S SON REPORTS THAT IT WAS NOT THERE IN THE ER. ASSURED HIM THAT SHE DID NOT BUMP HER HEAD SINCE ARRIVAL INTO THE ICU.
--- NOTE | 2016-10-07 18:24 | NUR ---
PT'S SON TOOK RING OFF OF HER LEFT RING FINGER. YELLOW METAL WITH MULTIPLE CLEAR STONES.
--- NOTE | 2016-10-07 18:25 | NUR ---
SCDS APPLIED TO BILATERAL LOWER EXT. DR. EDWARDS NOTIFIED OF PT'S SON REQUESTING TRANSFER TO [facility]. GIVEN NUMBER TO MED EXCHANGE [phone] SO THAT HE CAN [facility] [employer] [employer] [facility] FOR [facility].
--- NOTE | 2016-10-07 19:25 | NUR ---
DR. EDWARDS RETURNED CALL. STATES ACCEPTING PHYSICIAN AT [facility] IS GOING TO BE DR. JANE. SPOKE WITH MARQUITA AT [facility] CONTR[facility] IN [facility] AND FAXED A FACESHEET. SHE STATES SHE WILL CALL BACK WITH A ROOM NUMBER.
--- NOTE | 2016-10-07 19:40 | NUR ---
CALLED PT'S SON SUSAN TREVIÑO # [phone] AND UPDATED HIM ON ACCEPTING PHYSICIAN. INFORMED HIM THAT WE ARE WAITING ON A CALL BACK FROM [facility] FOR A ROOM ASSIGNMENT. HE VOICED UNDERSTANDING. CALLED AND NOTIFIED DR. JAMIL THAT FAMILY IS REFUSING CONSULT AT THIS TIME. HE VOICED UNDERSTANDING.
--- NOTE | 2016-10-07 19:55 | NUR ---
REPORT RECIEVED. ASSESSMENT COMPLETE PER FLOW SHEET. VSS. REPOSITIONED ON R SIDE FOR COMFORT. PT RESPONDS TO VERBAL STIMULI ABLE TO STATE NAME CONFUSED TO TIME SITUATION AND PLACE. REORIENTED. NEEDS MET. WILL CONTINUE TO MONITOR
--- NOTE | 2016-10-07 21:09 | NUR ---
FAMILY CALLED GIVEN UDPATE. NO NEW CHANGES. WILL CONTINUE TO MONITOR
--- NOTE | 2016-10-07 23:08 | NUR ---
FAMILY CALLED GIVEN UPDATE. VSS. REASSESSMENT COMPLETEPER FLOW SHEET. NO NEW FINDINGS. WILL CONTINUE TO MONITOR
[2016-10-08] VITALS: BP 160/88
[2016-10-08 01:00] VITALS: BP 167/88
[2016-10-08 02:00] VITALS: BP 169/90
[2016-10-08 03:00] VITALS: BP 158/92
--- NOTE | 2016-10-08 03:12 | NUR ---
REASSESSMENT COMPLETE PER FLOW SHEET. VSS. WILL CONTINUE TO MONITOR REPORT CALLED TO CAREN MIR IN LR. WILL CONTINUE TO MONITOR
--- NOTE | 2016-10-08 04:12 | NUR ---
EMS HERE FOR PT
== END 2016-10-08 04:12 | disposition short-term general hospital (02) | DRG 101 ==
LOC: D.ER 13:20 → D.MS 16:14 → D.ICU 16:21
PROVIDERS: Emergency Medicine; ADMIT Family Medicine
DX: R56.9 Unspecified convulsions (principal); C90.00 Multiple myeloma not having achieved remission; G35 Multiple sclerosis; Z86.73 Personal history of transient ischemic attack (TIA), and cerebral infarction without residual deficits; E11.40 Type 2 diabetes mellitus with diabetic neuropathy, unspecified; E11.22 Type 2 diabetes mellitus with diabetic chronic kidney disease; I12.9 Hypertensive chronic kidney disease with stage 1 through stage 4 chronic kidney disease, or unspecified chronic kidney disease; N18.3 Chronic kidney disease, stage 3 (moderate); D64.9 Anemia, unspecified; K21.9 Gastro-esophageal reflux disease without esophagitis; J44.9 Chronic obstructive pulmonary disease, unspecified; F41.8 Other specified anxiety disorders; Z87.891 Personal history of nicotine dependence

== ENCOUNTER 2016-12-05 11:19 | Outpatient (CLI) | payer MEDICARE ==
[2016-12-05 13:38] VITALS: BMI 37.2
--- NOTE | 2016-12-05 20:29 | NUR ---
1931 IV DC WITH CATHER TIP INTACT, 1999 FAMILY HERE TO MAILMASTER PT
== END 2016-12-05 20:00 | disposition home or self-care (01) ==
LOC: D.OPS 11:19
DX: D64.9 Anemia, unspecified (principal)

== ENCOUNTER 2017-02-14 22:37 | Observation (INO) | payer MEDICARE ==
[~2017-02-14] VITALS: Ht 167.6 cm; Wt 106.8 kg
--- NOTE | ~2017-02-14 | CN ---
PATIENT NAME:ROWENA TYSON MEDICAL RECORD: [id number] : [birth year] LOCATION:D.MS [id number] ADMIT DATE: 02/15/17 ACCOUNT: [id number] CONSULTING PHYSICIAN: RICCO UGALDE MD REFERRING PHYSICIAN: MAXI BRUNER MD DATE OF CONSULTATION: 02/15/2017 HISTORY OF PRESENT ILLNESS: Rowena Tyson is a 71-year-old lady with no known history of coronary artery disease, history of atrial fibrillation in the past, previously seen by Dr. Carrizales, after a code, questionable vagal event, post bone marrow biopsy admitted with chest pain. She was outside smoking in the cold, had onset of chest pain, some dyspnea ruled out via PE protocol. Cardiac enzymes are negative, had mildly elevated BNP. Currently, feels well. We are asked to see her concerning her cardiovascular status. PAST MEDICAL HISTORY: Includes: 1. History of hypertension. 2. Obstructive pulmonary disease. 3. Dyslipidemia. 4. Atrial fibrillation. 5. Diabetes mellitus. ALLERGIES: COMPAZINE, CODEINE. SOCIAL HISTORY: Smokes little bit less than a pack a day, nondrinker. Easily takes care of all her ADLs. MEDICATIONS: Include Atenolol 25 mg p.o. every day, Lipitor 20 every day, losartan 25 every day, aspirin 324 every day, Depakote 1 gram q.h.s., Neurontin 600 q.h.s., Ativan 0.5 mg t.i.d. p.r.n., and Glucophage 500 b.i.d. REVIEW OF SYSTEMS: The patient reports easy bruising but reports no swollen glands. The patient reports no fever, no night sweats, no significant weight gain, no significant weight loss. No significant exercise tolerance. The patient reports no dry eyes, no irritation, no vision change. Patient reports no difficulty hearing and no ear pain. Patient reports no frequent nose bleeds or nose and sinus problems. Patient reports on arm pain on exertion. No shortness of breath while lying down. No history of heart murmur. Patient reports no cough, no wheezing or coughing up blood. Patient reports no abdominal pain, no vomiting. Normal appetite. No diarrhea and not vomiting blood. No nausea and no constipation. Patient reports no incontinence. No difficulty urinating. No hematuria. No increased frequency. Patient reports no muscle aches. No weakness, no arthralgias, no back pain. No swelling of the extremities. Patient reports no abnormal mole, no jaundice, no rashes. Reports no loss of consciousness. No weakness and no numbness. No seizures, dizziness, or headaches. The patient reports no depression, no sleep disturbance, feeling safe in a relationship and no alcohol abuse. Patient reports on fatigue. Reports no runny nose or sinus pressure. No itching, no hives, and no frequent sneezing. PHYSICAL EXAMINATION: GENERAL: Well-developed female in no acute distress. VITAL SIGNS: Pulse is 84, blood pressure 119/59. HEENT: Normocephalic, atraumatic. NECK: No JVD or bruit. CONSULT REPORT [id number] ROWENA TYSON HEART: Irregular, rate is controlled, II/ systolic ejection murmur. LUNGS: Few expiratory wheezes. ABDOMEN: Soft, nontender. EXTREMITIES: Pulse well preserved, 2+ with no edema. DIAGNOSTIC DATA: ECG without acute change. IMPRESSION: Doubt acute coronary syndrome. Given her atrial fibrillation chronic in nature and KATE score, would recommend starting her on Xarelto 20 mg p.o. day. No contraindication at discharge from a cardiovascular standpoint. TRANSINT:[id number] Voice Confirmation ID: [id number] DOCUMENT ID: [id number] RICCO UGALDE MD at 1337 CC: [id number] DICTATION DATE: 02/15/17 1016 FORENSIC MANAGER: 02/15/17 1129 DIS IN 02/15/17 [id number] [place] [address]
[2017-02-15 00:31] LABS: INR 1.1 (0.85-1.17); PROTIME 13.8 SECONDS (11.6-15.0)
[2017-02-15 00:33] LABS: D-DIMER-QUANTITATIVE 1.26 ug/mLFEU (0.20-0.54)
[2017-02-15 00:42] LABS: BASOPHILS 0.1 % (0-2); EOSINOPHILS 1.5 % (0-7); HEMOGLOBIN 10.1 g/dL (12-16); IMMATURE GRANULOCYTES 0.4 % (0-5); LYMPHOCYTES 4.9 % (15-50); MCHC 31.6 g/dL (31.0-37.0); MCV 98.2 fL (80.0-100.0); MEAN PLATELET VOLUME 10.6 fL (7.4-10.4); MONOCYTES 5.8 % (2-11); NEUTROPHILS 87.3 % (40-80); PLATELET COUNT 108 10x3/uL (130-400); RBC 3.26 10x6/uL (4.00-5.40); RDW 15.2 % (11.5-14.5); WBC 10.8 10x3/uL (4.8-10.8)
[2017-02-15 01:10] LABS: ALBUMIN 3.2 g/dL (3.4-5.0); ALKALINE PHOSPHATASE 71 U/L (46-116); ALT (SGPT) 11 U/L (10-68); AMYLASE - SERUM 13 U/L (25-115); BILIRUBIN - TOTAL 0.35 mg/dL (0.2-1.3); CALCIUM 8.6 mg/dL (8.5-10.1); CARBON DIOXIDE 29.7 mmol/L (21.0-32.0); CHLORIDE - SERUM 104 mmol/L (98-107); CREATININE - SERUM 1.4 mg/dL (0.6-1.3); LIPASE 65 U/L (73-393); POTASSIUM - SERUM 4.1 mmol/L (3.5-5.1); PRO BNP 7163 pg/mL (0-125); PROTEIN - SERUM 6.4 g/dL (6.4-8.2); SODIUM 141 mmol/L (136-145); UREA NITROGEN 26 mg/dL (7-18); eGFR NON AFRICAN AMERICAN 39 mL/min (90-120)
[2017-02-15 01:15] LABS: CALC OSMOLALITY 293 mosm/kg (275-300); GLUCOSE 249 mg/dL (74-106); TROPONIN-I < 0.017 ng/mL (0.000-0.060)
[2017-02-15] MEDS ORDERED: METOPROLOL TART50 MG PO (03:22)
[2017-02-15] MEDS ORDERED: MEDROL DOSE PACK4 MG PO (03:30)
[2017-02-15] MEDS ORDERED: TENORMIN25 MG PO (03:31)
[2017-02-15] MEDS ORDERED: BAYER CHEWABLE81 MG PO (03:31)
[2017-02-15] MEDS ORDERED: DEPAKOTE ER500 MG PO (03:33)
[2017-02-15] MEDS ORDERED: MACROBID100 MG PO (03:33)
[2017-02-15 04:25] VITALS: BP 126/52; BMI 38.0
[2017-02-15 08:15] VITALS: BP 119/59
[2017-02-15 10:25] VITALS: Ht 167.6 cm; Wt 106.8 kg
[2017-02-15] MEDS ORDERED: ZITHROMAX250 MG PO (11:40)
[2017-02-15] MEDS ORDERED: NICODERM C1 PATCH .3 TRANSDERM (11:41)
[2017-02-15] MEDS ORDERED: PROAIR HFA8.5 GM INH (11:41)
[2017-02-15 12:43] VITALS: BP 128/68
== END 2017-02-15 15:47 | disposition home or self-care (01) ==
LOC: D.ER 22:37 → D.MS 02-15 02:18 → OBSVTIME 02-15 02:18 → D.MS 02-15 15:47
PROVIDERS: Family Medicine
DX: J44.1 Chronic obstructive pulmonary disease with (acute) exacerbation (principal); J20.9 Acute bronchitis, unspecified; J44.0 Chronic obstructive pulmonary disease with (acute) lower respiratory infection; I12.9 Hypertensive chronic kidney disease with stage 1 through stage 4 chronic kidney disease, or unspecified chronic kidney disease; N18.3 Chronic kidney disease, stage 3 (moderate); D69.6 Thrombocytopenia, unspecified; K21.9 Gastro-esophageal reflux disease without esophagitis; G35 Multiple sclerosis; G40.909 Epilepsy, unspecified, not intractable, without status epilepticus; D63.1 Anemia in chronic kidney disease; F17.203 Nicotine dependence unspecified, with withdrawal; I48.2 Chronic atrial fibrillation

== ENCOUNTER 2017-02-28 12:23 | Inpatient (IN) | payer MEDICARE ==
[~2017-02-28] VITALS: Ht 167.6 cm; Wt 106.6 kg
[~2017-02-28 12:23] MED LIST changes: +BAYER CHEWABLE81 MG PO; +DEPAKOTE ER500 MG PO; +MACROBID100 MG PO; +MEDROL DOSE PACK4 MG PO; +METOPROLOL TART50 MG PO; +PROAIR HFA8.5 GM INH; +ZITHROMAX250 MG PO
[2017-02-28 13:26] LABS: BASOPHILS 0.2 % (0-2); EOSINOPHILS 11.2 % (0-7); HEMATOCRIT 28.8 % (36.0-48.0); IMMATURE GRANULOCYTES 0.7 % (0-5); LYMPHOCYTES 19.9 % (15-50); MCH 30.7 pg (26.0-34.0); MCHC 31.3 g/dL (31.0-37.0); MCV 98.3 fL (80.0-100.0); MONOCYTES 8.4 % (2-11); NEUTROPHILS 59.6 % (40-80); RBC 2.93 10x6/uL (4.00-5.40)
[2017-02-28 13:27] LABS: ALBUMIN 2.6 g/dL (3.4-5.0); ALKALINE PHOSPHATASE 59 U/L (46-116); ALT (SGPT) 8 U/L (10-68); BILIRUBIN - TOTAL 0.27 mg/dL (0.2-1.3); CALC OSMOLALITY 285 mosm/kg (275-300); CALCIUM 8.7 mg/dL (8.5-10.1); CARBON DIOXIDE 31.2 mmol/L (21.0-32.0); CHLORIDE - SERUM 106 mmol/L (98-107); CREATININE - SERUM 1.5 mg/dL (0.6-1.3); GLUCOSE 98 mg/dL (74-106); PLATELET COUNT 171 10x3/uL (130-400); POTASSIUM - SERUM 4.7 mmol/L (3.5-5.1); PROTEIN - SERUM 5.9 g/dL (6.4-8.2); SODIUM 141 mmol/L (136-145); UREA NITROGEN 27 mg/dL (7-18); eGFR NON AFRICAN AMERICAN 36 mL/min (90-120)
[2017-02-28 13:30] LABS: INR 1.09 (0.85-1.17); PROTIME 13.7 SECONDS (11.6-15.0)
[2017-02-28 13:31] LABS: D-DIMER-QUANTITATIVE 1.08 ug/mLFEU (0.20-0.54)
[2017-02-28 13:40] LABS: CKMB 0.7 U/L (0.0-3.6); CREATINE KINASE 31 UL (21-215); MAGNESIUM - SERUM 1.9 mg/dL (1.8-2.4); PRO BNP 6477 pg/mL (0-125)
[2017-02-28 13:41] LABS: TROPONIN-I < 0.017 ng/mL (0.000-0.060)
[2017-02-28 18:04] VITALS: BP 118/71; BMI 38.0
[2017-02-28 20:00] VITALS: BP 128/58
[2017-03-01] VITALS (7 sets, daily range): BP systolic 88–149; BP diastolic 51–77
[2017-03-01] MEDS ORDERED: MYCOSTATIN 15 G15 GM TOPICAL (02:54)
[2017-03-01] MEDS ORDERED: NYSTATIN1 PWD TOPICAL (02:54)
[2017-03-01] MEDS ORDERED: FUROSEMIDE20 MG PO (02:56)
[2017-03-01 05:31] LABS: BASOPHILS 0.2 % (0-2); EOSINOPHILS 0.3 % (0-7); HEMATOCRIT 30.9 % (36.0-48.0); HEMOGLOBIN 9.8 g/dL (12-16); LYMPHOCYTES 5.9 % (15-50); MCH 30.7 pg (26.0-34.0); MCHC 31.7 g/dL (31.0-37.0); MCV 96.9 fL (80.0-100.0); MEAN PLATELET VOLUME 10.5 fL (7.4-10.4); NEUTROPHILS 91.6 % (40-80); PLATELET COUNT 170 10x3/uL (130-400); RBC 3.19 10x6/uL (4.00-5.40); RDW 14.7 % (11.5-14.5); WBC 5.9 10x3/uL (4.8-10.8)
[2017-03-01 05:49] LABS: ALBUMIN 2.8 g/dL (3.4-5.0); ANION GAP 15.5 mmol/L (8-16); BILIRUBIN - TOTAL 0.32 mg/dL (0.2-1.3); CALCIUM 8.6 mg/dL (8.5-10.1); CARBON DIOXIDE 24.5 mmol/L (21.0-32.0); CREATININE - SERUM 1.6 mg/dL (0.6-1.3); PROTEIN - SERUM 6.5 g/dL (6.4-8.2)
[2017-03-01 16:37] LABS: APPEARANCE CLOUDY (CLEAR); BILIRUBIN NEGATIVE (NEGATIVE); COLOR YELLOW (YELLOW); GLUCOSE NEGATIVE (NEGATIVE); KETONE NEGATIVE (NEGATIVE); NITRITE NEGATIVE (NEGATIVE); PH 5.5 (5.0-6.0); PROTEIN TRACE mg/dL (NEGATIVE); SPECIFIC GRAVITY 1.015 (1.005-1.020); UROBILINOGEN NORMAL (NORMAL)
[2017-03-01 16:40] LABS: BACTERIA MODERATE /hpf (NONE SEEN); EPITHELIAL CELLS 0-5 /hpf (0-5); RED CELLS - URINE RARE /hpf (0-5); WHITE CELLS - URINE 0-5 /hpf (0-5)
[2017-03-02 01:38] VITALS: BP 149/69
[2017-03-02 05:11] LABS: BASOPHILS 0.1 % (0-2); EOSINOPHILS 0 % (0-7); HEMATOCRIT 25.9 % (36.0-48.0); HEMOGLOBIN 8.4 g/dL (12-16); IMMATURE GRANULOCYTES 0.6 % (0-5); MCH 30.9 pg (26.0-34.0); MCHC 32.4 g/dL (31.0-37.0); MCV 95.2 fL (80.0-100.0); MEAN PLATELET VOLUME 10.6 fL (7.4-10.4); MONOCYTES 2.6 % (2-11); NEUTROPHILS 92.7 % (40-80); RBC 2.72 10x6/uL (4.00-5.40); RDW 14.6 % (11.5-14.5)
[2017-03-02 05:15] LABS: PLATELET COUNT 134 10x3/uL (130-400); WBC 8.7 10x3/uL (4.8-10.8)
[2017-03-02 05:17] LABS: ANION GAP 14.9 mmol/L (8-16); CALCIUM 8.1 mg/dL (8.5-10.1); CARBON DIOXIDE 26.7 mmol/L (21.0-32.0); CREATININE - SERUM 1.8 mg/dL (0.6-1.3); MAGNESIUM - SERUM 1.6 mg/dL (1.8-2.4); PHOSPHOROUS 4.8 mg/dL (2.5-4.9); POTASSIUM - SERUM 4.6 mmol/L (3.5-5.1)
[2017-03-02 07:46] VITALS: BP 119/59
[2017-03-02 08:45] VITALS: BP 119/60
[2017-03-02 12:37] VITALS: BP 138/69
[2017-03-02 14:46] VITALS: BMI 37.9
[2017-03-02 17:19] VITALS: Ht 167.6 cm; Wt 106.6 kg
[2017-03-02 17:46] LABS: % SATURATION 17 % (15-55); IRON 39 ug/dl (35-150); TOTAL IRON BIND CAPACITY 224 ug/dl (260-445); UNSAT IRON BIND CAPACITY 185 ug/dl (150-375)
[2017-03-02 17:51] VITALS: BP 148/76
[2017-03-02 22:01] VITALS: BP 143/80
[2017-03-03 04:22] LABS: BASOPHILS 0 % (0-2); EOSINOPHILS 0 % (0-7); HEMATOCRIT 28.4 % (36.0-48.0); HEMOGLOBIN 9.2 g/dL (12-16); IMMATURE GRANULOCYTES 0.4 % (0-5); LYMPHOCYTES 5.8 % (15-50); MCH 30.9 pg (26.0-34.0); MCHC 32.4 g/dL (31.0-37.0); MCV 95.3 fL (80.0-100.0); MEAN PLATELET VOLUME 11.3 fL (7.4-10.4); MONOCYTES 3.2 % (2-11); NEUTROPHILS 90.6 % (40-80); PLATELET COUNT 133 10x3/uL (130-400); RBC 2.98 10x6/uL (4.00-5.40); RDW 14.2 % (11.5-14.5)
[2017-03-03 04:48] VITALS: BP 134/67
[2017-03-03 04:54] LABS: ALBUMIN 2.6 g/dL (3.4-5.0); ANION GAP 13.4 mmol/L (8-16); BILIRUBIN - TOTAL 0.28 mg/dL (0.2-1.3); CALCIUM 8.7 mg/dL (8.5-10.1); CARBON DIOXIDE 30.2 mmol/L (21.0-32.0); CREATININE - SERUM 1.7 mg/dL (0.6-1.3); POTASSIUM - SERUM 4.6 mmol/L (3.5-5.1); PROTEIN - SERUM 6.1 g/dL (6.4-8.2)
[2017-03-03 08:43] VITALS: BP 130/66
[2017-03-03 10:19] LABS: IMMUNOGLOBULIN G 665 mg/dL (700-1600)
[2017-03-03 12:45] VITALS: BP 142/76
[2017-03-03] MEDS ORDERED: LOVENOX30 MG/0.3 SC (15:24)
[2017-03-03] MEDS ORDERED: XOPENEX 0.0.63 MG/3 UPD ×2 (15:24)
[2017-03-03] MEDS ORDERED: ATROVENT 0.02%2.5 ML UPD (15:24)
[2017-03-03] MEDS ORDERED: MAXIPIME 2 GM/D52 G1 IV (15:24)
[2017-03-03] MEDS ORDERED: BROVANA15 MCG/2 M INH (15:24)
[2017-03-03] MEDS ORDERED: NICODERM C1 PATCH .3 TRANSDERM (15:24)
[2017-03-03] MEDS ORDERED: BENZONATATE200 MG PO (15:25)
[2017-03-03] MEDS ORDERED: LASIX INJ40 MG/4 ML IV (15:25)
[2017-03-03] MEDS ORDERED: MUCINEX DM ER1 EAC1 PO (15:25)
[2017-03-03] MEDS ORDERED: PULMICORT0.5 MG/21 UPD (15:25)
[2017-03-03] MEDS ORDERED: FLORAJEN3 CAPS460 MG PO (15:26)
[2017-03-03] MEDS ORDERED: HUMULIN R100 U/ML SC (15:26)
[2017-03-03] MEDS ORDERED: DALIRESP500 MCG PO (15:26)
[2017-03-03] MEDS ORDERED: SINGULAIR10 MG PO (15:26)
[2017-03-03] MEDS ORDERED: TUSSIONEX PENN473 ML PO (15:26)
[2017-03-07 06:13] LABS: IMMUNOGLOBULIN E 1838 IU/mL (0-100)
== END 2017-03-03 18:05 | DRG 193 ==
LOC: D.ER 12:23 → D.MS 16:39
PROVIDERS: Family Medicine; Internal Medicine Hematology & Oncology; Internal Medicine Nephrology; Internal Medicine Pulmonary Disease
DX: J18.9 Pneumonia, unspecified organism (principal); J96.21 Acute and chronic respiratory failure with hypoxia; J44.1 Chronic obstructive pulmonary disease with (acute) exacerbation; J98.11 Atelectasis; C90.00 Multiple myeloma not having achieved remission; D80.3 Selective deficiency of immunoglobulin G [IgG] subclasses; I13.0 Hypertensive heart and chronic kidney disease with heart failure and stage 1 through stage 4 chronic kidney disease, or unspecified chronic kidney disease; I50.30 Unspecified diastolic (congestive) heart failure; N17.9 Acute kidney failure, unspecified; F17.203 Nicotine dependence unspecified, with withdrawal; J44.0 Chronic obstructive pulmonary disease with (acute) lower respiratory infection; G35 Multiple sclerosis; R91.1 Solitary pulmonary nodule; G40.909 Epilepsy, unspecified, not intractable, without status epilepticus; E11.22 Type 2 diabetes mellitus with diabetic chronic kidney disease; E11.65 Type 2 diabetes mellitus with hyperglycemia; N18.3 Chronic kidney disease, stage 3 (moderate); E78.5 Hyperlipidemia, unspecified; E11.42 Type 2 diabetes mellitus with diabetic polyneuropathy; Z86.73 Personal history of transient ischemic attack (TIA), and cerebral infarction without residual deficits; F41.8 Other specified anxiety disorders; E86.0 Dehydration; D63.1 Anemia in chronic kidney disease; I48.2 Chronic atrial fibrillation; K21.9 Gastro-esophageal reflux disease without esophagitis

== ENCOUNTER 2017-03-03 17:12 | Inpatient (IN) | payer MEDICARE ==
[~2017-03-03] VITALS: Ht 167.6 cm; Wt 106.6 kg
--- NOTE | ~2017-03-03 | RHP ---
PATIENT: KENDRA GEE MEDICAL RECORD: [id number] ACCOUNT: [id number] LOCATION:[id number] : 41 ADMISSION DATE: 03/03/17 REHABILITATION HISTORY AND PHYSICAL EXAMINATION POST ADMISSION PHYSICIAN EXAMINATION POST-ADMISSION PHYSICAL EXAMINATION AND HISTORY AND PHYSICAL DATE OF ADMISSION: 03/03/2017 ADMITTING DIAGNOSIS: Acute exacerbation of chronic obstructive pulmonary disease. HISTORY OF PRESENT ILLNESS: The patient is a 71-year-old female patient admitted for an acute exacerbation of COPD. She comes in with a 1-week history of progressive shortness of breath and cough. After recent hospitalization, states she stopped smoking for about 10 days and resumed 3-4 cigarettes a day. Became more short of breath with increased wheezing, dyspnea with any type of activity. She has a past medical history of CVA, neuropathy, seizure disorder, left ventricular hypertrophy, mild pulmonary insufficiency, chronic kidney disease, chronic AFib, COPD, hypertension, anemia, MS, multiple myeloma, diabetes, gastroesophageal reflux disease, degenerative joint disease. She has got a history of cardiopulmonary arrest and pneumonia back in September 2016 and on exam, she was in mild distress with decreased breath sounds, wheeze, rhonchi, rales. She had no stridor or retractions. She was hypoxic with a sat of 90%, on 2 liters. Chest x-ray showed mild interstitial changes with bilateral peribronchial cuffing, and scarring in her left lung base. Her ABG showed a pH of 7.42, pCO2 of 40, pO2 of 64, and a sat of 92% on room air. She was admitted with pulmonary and oncology consultation. Previously, she lived with her son and daughter. She was moderately independent with a cane or walker. She was using inhaler, but was not dependent on O2 or nebulized treatments. Currently, she is set up [id number] assist for ADLs and mobility. She is on O2 at 3.5 liters continuously. She tires easily. She is highly motivated and has good family support to regain her strength and return back home where she was moderately independent without assistive device. Comorbidities include hypertension, chronic AFib, pneumonia, COPD, mgbyp-uz-cgpndpy respiratory failure, hypoxia, left ventricular hypertrophy, history of tobacco dependence, history of CVA, seizure disorder, anemia, multiple sclerosis, multiple myeloma, depression, and neuropathy. PAST MEDICAL HISTORY: Significant for neuropathy, seizures, peripheral neuropathy, multiple sclerosis, has got a history of hypertension, AFib, pneumonia, chronic cough, depression, and anxiety. PAST SURGICAL HISTORY: Includes gallbladder surgery, colon surgery, knee surgery, hysterectomy. ALLERGIES: COMPAZINE AND CODEINE. CURRENT MEDICATIONS: Include MiraLax 17 grams in 8 ounces of water daily. She is on Cozaar 25 mg daily, Daliresp 500 mcg daily, Nicoderm 21 mg daily per patch, Glucophage 500 mg daily, Floranex 460 mg daily, Lovenox 30 mg subcutaneous daily, vitamin B12 at 1000 mcg daily, Celexa 10 mg daily, vitamin D 2000 units daily, Pulmicort 0.5 mg b.i.d., aspirin 325 mg daily, Brovana 15 mcg b.i.d., Zyloprim 100 mg daily, Pepcid 20 mg b.i.d., potassium gluconate 99 mg HISTORY AND PHYSICAL [id number] MARLEN,KENDRA O daily, Ditropan 5 mg t.i.d., Singulair 10 mg at bedtime, Lopressor 50 mg b.i.d., Ativan 0.5 mg t.i.d., Xopenex updrafts as needed. She is on high-resistant insulin sliding scale, Tussionex 1 teaspoon every 12 hours p.r.n., Mucinex D 1 b.i.d., Neurontin 600 mg at bedtime, Lasix 40 mg b.i.d., Depakote 1000 mg at bedtime. She is on Maxipime 2 grams every 12 hours, Tessalon Perles 200 mg t.i.d., and Lipitor 20 mg at bedtime. HABITS: Does have a history of tobacco use. FAMILY HISTORY: Noncontributory. SOCIAL HISTORY: The patient hopes to return back home with her son and [id number] and get back to her prior level of functioning. REVIEW OF SYSTEMS: GENERAL: Does complain of weakness. HEENT: Does complain of cold, cough, congestion. CARDIOVASCULAR: Denies any chest pain. LUNGS: Does complain of shortness of breath. PHYSICAL EXAMINATION: VITAL SIGNS: Stable, afebrile. GENERAL: A somewhat obese female, in no acute distress upon exam. HEENT: Normocephalic and atraumatic. Mucosa moist. NECK: Supple. No lymphadenopathy. LUNGS: Coarse breath sounds bilaterally with decreased breath sounds in the bases. CARDIOVASCULAR: Irregular rate and rhythm. ABDOMEN: Benign. EXTREMITIES: No clubbing, cyanosis or edema. NEUROLOGIC: Intact. LABORATORY DATA: Her white count is 8.7, H&H of 10 and 30, and platelet count is 152. Sodium 138, potassium 3.8, BUN and creatinine of 50 and 1.5, and blood sugar was noted to be 104. ASSESSMENT: This is a 71-year-old female admitted to rehab with a working diagnosis of acute exacerbation of chronic obstructive pulmonary disease with multiple comorbidities. The patient has potential to make improvement. We will institute the following multidisciplinary therapies including, but not limited to physical, occupational, respiratory, speech, nutritional services, prosthetics and orthotics. Given her complex condition and risk for more complications, rehabilitation services cannot be provided at a low level of care such as a senior living facility. PLAN: 1. Admit to [facility] for intensive inpatient therapy to include the following disciplines: A. Physical therapy to improve gait, all transfer skills and bed mobility to a modified independent level. B. Occupational therapy to improve activities of daily living to a modified independent level. C. Case management to assist with discharge planning and placement options. D. Nutrition to assist with nutritional needs. E. Rehabilitation nursing to assist in monitoring the patient's underlying HISTORY AND PHYSICAL [id number] KENDRA GEE medical conditions and to assist with any type of bowel or bladder management. 2. The patient's current medication and medical care will be continued. 3. The patient will be placed on standard fall precautions. 4. The patient's estimated length of stay is approximately 7 to 10 days. 5. We will discuss this patient during care team staff meeting this week. TRANSINT:[id number] Voice Confirmation ID: [id number] DOCUMENT ID: [id number] SRINATH notes whether there has been none or any medical/functional change since admission: - No change since prescreen. SRINATH attests patient continues to be appropriate for IRF: - Continues to be appropriate. SARAH GAN MD at 1020 CC: [id number] DICTATION DATE: 03/04/17 0847 OFFICE CLIN ASST: 03/04/17 1141 ADM IN [facility] [address] [place] [address]
[~2017-03-03 17:12] MED LIST changes: +ATROVENT 0.02%2.5 ML UPD; +BENZONATATE200 MG PO; +BROVANA15 MCG/2 M INH; +DALIRESP500 MCG PO; +FLORAJEN3 CAPS460 MG PO; +FUROSEMIDE20 MG PO; +HUMULIN R100 U/ML SC; +LASIX INJ40 MG/4 ML IV; +LOVENOX30 MG/0.3 SC; +MAXIPIME 2 GM/D52 G1 IV; +MUCINEX DM ER1 EAC1 PO; +MYCOSTATIN 15 G15 GM TOPICAL; +NYSTATIN1 PWD TOPICAL; +PULMICORT0.5 MG/21 UPD; +SINGULAIR10 MG PO; +TUSSIONEX PENN473 ML PO; +XOPENEX 0.0.63 MG/3 UPD
[2017-03-04 01:15] VITALS: BP 118/75
[2017-03-04 07:17] LABS: BASOPHILS 0.1 % (0-2); EOSINOPHILS 0 % (0-7); HEMOGLOBIN 9.9 g/dL (12-16); IMMATURE GRANULOCYTES 0.7 % (0-5); MEAN PLATELET VOLUME 10.9 fL (7.4-10.4); MONOCYTES 8.8 % (2-11); NEUTROPHILS 79.4 % (40-80); PLATELET COUNT 152 10x3/uL (130-400); RBC 3.19 10x6/uL (4.00-5.40); RDW 13.8 % (11.5-14.5); WBC 8.7 10x3/uL (4.8-10.8)
[2017-03-04 08:05] LABS: ANION GAP 11.1 mmol/L (8-16); CALCIUM 8.8 mg/dL (8.5-10.1); CARBON DIOXIDE 34.7 mmol/L (21.0-32.0); CREATININE - SERUM 1.5 mg/dL (0.6-1.3)
[2017-03-04 08:07] LABS: POTASSIUM - SERUM 3.8 mmol/L (3.5-5.1)
[2017-03-04 09:16] VITALS: BP 116/66
[2017-03-04 14:05] VITALS: Ht 167.6 cm; Wt 106.6 kg
[2017-03-04 20:40] VITALS: BP 99/61
[2017-03-05 07:58] VITALS: BP 110/43
[2017-03-05 20:54] VITALS: BP 96/52
[2017-03-06 06:12] LABS: ANION GAP 9.7 mmol/L (8-16); CALCIUM 8.5 mg/dL (8.5-10.1); CARBON DIOXIDE 35.1 mmol/L (21.0-32.0); CREATININE - SERUM 1.8 mg/dL (0.6-1.3); POTASSIUM - SERUM 3.8 mmol/L (3.5-5.1)
[2017-03-06 06:33] LABS: BASOPHILS 0.2 % (0-2); EOSINOPHILS 2.8 % (0-7); HEMATOCRIT 28.2 % (36.0-48.0); HEMOGLOBIN 9.2 g/dL (12-16); IMMATURE GRANULOCYTES 0.9 % (0-5); LYMPHOCYTES 33.8 % (15-50); MCH 30.9 pg (26.0-34.0); MCHC 32.6 g/dL (31.0-37.0); MCV 94.6 fL (80.0-100.0); MEAN PLATELET VOLUME 10.6 fL (7.4-10.4); MONOCYTES 8.8 % (2-11); NEUTROPHILS 53.5 % (40-80); PLATELET COUNT 121 10x3/uL (130-400); RBC 2.98 10x6/uL (4.00-5.40); RDW 14.1 % (11.5-14.5); WBC 6.5 10x3/uL (4.8-10.8)
[2017-03-06 07:45] VITALS: BP 98/45
[2017-03-06 19:46] VITALS: BP 102/45
[2017-03-07 08:27] VITALS: BP 117/50
[2017-03-07 15:13] LABS: APPEARANCE HAZY (CLEAR); BILIRUBIN NEGATIVE (NEGATIVE); COLOR YELLOW (YELLOW); GLUCOSE NEGATIVE (NEGATIVE); KETONE NEGATIVE (NEGATIVE); NITRITE NEGATIVE (NEGATIVE); PROTEIN TRACE mg/dL (NEGATIVE); UROBILINOGEN NORMAL (NORMAL)
[2017-03-07 15:16] LABS: AMORPHOUS SEDIMENT <1+ /lpf (NONE SEEN); EPITHELIAL CELLS 0-5 /hpf (0-5); WHITE CELLS - URINE RARE /hpf (0-5)
[2017-03-07 20:00] VITALS: BP 112/70
[2017-03-08 09:00] VITALS: BP 118/63
[2017-03-08 20:44] VITALS: BP 128/64
[2017-03-09 06:37] LABS: BASOPHILS 0.1 % (0-2); EOSINOPHILS 3.9 % (0-7); HEMATOCRIT 31.3 % (36.0-48.0); HEMOGLOBIN 10.1 g/dL (12-16); LYMPHOCYTES 15.1 % (15-50); MCH 30.8 pg (26.0-34.0); MCHC 32.3 g/dL (31.0-37.0); MCV 95.4 fL (80.0-100.0); MONOCYTES 11.9 % (2-11); PLATELET COUNT 142 10x3/uL (130-400); RBC 3.28 10x6/uL (4.00-5.40); RDW 13.7 % (11.5-14.5); WBC 6.8 10x3/uL (4.8-10.8)
[2017-03-09 07:24] LABS: ANION GAP 7.8 mmol/L (8-16); CALCIUM 9.3 mg/dL (8.5-10.1); CARBON DIOXIDE 36.6 mmol/L (21.0-32.0); CREATININE - SERUM 1.6 mg/dL (0.6-1.3); POTASSIUM - SERUM 3.4 mmol/L (3.5-5.1)
[2017-03-09 13:30] VITALS: BP 111/57
[2017-03-09 19:30] VITALS: BP 109/43
[2017-03-09 20:15] VITALS: BP 114/64
[2017-03-10] MEDS ORDERED: LASIX20 MG PO (09:06)
[2017-03-10 09:09] VITALS: BP 160/93
== END 2017-03-10 11:45 | disposition short-term general hospital (02) | DRG 190 ==
LOC: D.REHAB 17:12
PROVIDERS: Emergency Medicine
DX: J44.1 Chronic obstructive pulmonary disease with (acute) exacerbation (principal); J18.9 Pneumonia, unspecified organism; J96.21 Acute and chronic respiratory failure with hypoxia; C90.00 Multiple myeloma not having achieved remission; F17.203 Nicotine dependence unspecified, with withdrawal; N17.9 Acute kidney failure, unspecified; I10 Essential (primary) hypertension; I48.2 Chronic atrial fibrillation; I51.7 Cardiomegaly; G40.909 Epilepsy, unspecified, not intractable, without status epilepticus; D64.9 Anemia, unspecified; G35 Multiple sclerosis; F32.9 Major depressive disorder, single episode, unspecified; G62.9 Polyneuropathy, unspecified; E11.9 Type 2 diabetes mellitus without complications; E86.0 Dehydration; D63.1 Anemia in chronic kidney disease